=== PATIENT | male | born 1955 | race Caucasian/White ===

== ENCOUNTER 2019-06-08 14:44 | Emergency (ER) | payer MEDICARE, SELFPAY ==
[2019-06-08 14:53] VITALS: BP 174/93; PULSE 81; RESP 18; TEMP 36.5; O2SAT 96; BMI 32.3
--- NOTE | 2019-06-08 15:46 | ED.BACK ---
HPI - Back Pain/Injury <ROSALIA Faria - Last Filed: 06/08/19 17:46> General Chief Complaint: Back Pain/Injury Stated Complaint: lower back pain Time Seen by Provider: 06/08/19 14:47 Source: patient Limitations: no limitations History of Present Illness HPI Narrative: 63yo male with a history of multiple back surgeries including T11-L3 fusion, [place]ro[place], and a L4-L5 fusion. Patient states yesterday he was changing a tire on his vehicle, today he was shoveling a lot of snow and noticed an increase in low back pain, stiffness, and back spasms close to L3 and L4. He states the pain is a dull aching and burning pain that radiates down both legs. Pain is worse with lying, sitting, and moving around. He has been using ice, and heat, and ibuprofen without relief. Patient denies any loss of bowel or bladder control, trauma to the area, limb weakness, nausea, vomiting, diarrhea, fevers, recent spinal injections, or other concerns. Patient states that he has an appointment with his orthopedic in the next few days for possible surgery due to significant arthritis found on CT scans. Related Data Previous Rx's Medication Instructions Recorded cyclobenzaprine 10 mg PO BID PRN #30 tab 06/08/19 hydrocodone-acetaminophen [Quincy] 1 tab PO BID PRN #7 tab 06/08/19 prednisone 20 mg PO DAILY 5 Days #5 tab 06/08/19 Allergies Allergy/AdvReac Type Severity Reaction Status Date / Time morphine [MORPHINE] Allergy Unknown Verified 06/08/19 14:53 Review of Systems <ROSALIA Faria Last Filed: 06/08/19 17:46> Review of Systems Narrative: REVIEW OF SYSTEMS: GENERAL: Denies fever or chills. HENT: No head trauma. EYES: No double vision or vision loss. CARDIOVASCULAR: No chest pain or syncope. RESPIRATORY: No shortness of breath or cough. GASTROINTESTINAL: No nausea, vomiting, diarrhea, or constipation. GENITOURINARY: No flank pain or dysuria. denies loss of bowel or bladder control MUSCULOSKELETAL: Complains of low backpain, see HPI. INTEGUMENTARY: No rash, lesions, or pruritus. NEURO: No numbness, tingling. PSYCH: No behavior or mood changes. Patient History <ROSALIA Faria - Last Filed: 06/08/19 17:46> Medical History Fusion of lumbar spine (Acute) Social History Smoking Status: Never smoker Smoking Status: Never smoker Substance Use Type: does not use Exam <ROSALIA Faria - Last Filed: 06/08/19 17:46> Initial Vital Signs Initial Vital Signs: Vital Signs Temperature 97.7 F 06/08/19 14:53 Pulse Rate 81 06/08/19 14:53 Respiratory Rate 18 06/08/19 14:53 Blood Pressure 174/93 H 06/08/19 14:53 Pulse Oximetry 96 06/08/19 14:53 PHYSICAL EXAMINATION: GENERAL: Well groomed, alert, and cooperative. Answers questions promptly and appropriately. Vital signs noted. HENT: Normocephalic, atraumatic. EYES: Symmetrical, sclera white, no periorbital swelling. CARDIOVASCULAR: S1 and S2 sounds normal. Regular rate and rhythm, no murmurs, clicks, or bruits. No pedal edema. RESPIRATORY: Normal respiratory rate, trachea midline, airway patent. No stridor, nasal flaring or accessory muscle use. Lungs are clear in all novak. MUSCULOSKELETAL: Normal gait and coordination. Equal tone and mass bilaterally. Patient seen bracing himself when standing and sitting in due to back pain. Lumbar spine consistent with surgical site. , tenderness along paraspinal vertebral muscles and back spasm felt to lower lumbar muscles. Patient has equal lower and upper extremity strength against resistance. School Psychologist strength equal bilaterally. EXTREMITIES: CMS intact. No pedal edema. SKIN: Warm, dry, soft, appropriate color for ethnicity. No lesions, rashes, or wounds. NEURO: Alert and Oriented X 3. No sensory deficits. PSYCH: Appropriate affect and mood. <Heike Knutson MD - Last Filed: 06/09/19 06:54> Initial Vital Signs Initial Vital Signs: Vital Signs Temperature 97.7 F 06/08/19 14:53 Pulse Rate 81 06/08/19 14:53 Respiratory Rate 18 06/08/19 14:53 Blood Pressure 174/93 H 06/08/19 14:53 Pulse Oximetry 96 06/08/19 14:53 Course <ROSALIA Faria - Last Filed: 06/08/19 17:46> Vital Signs Vital signs: Vital Signs - 8 hr 06/08/19 14:53 Temperature 97.7 F Pulse Rate 81 Respiratory Rate 18 Blood Pressure 174/93 H Pulse Oximetry 96 <Heike Knutson MD - Last Filed: 06/09/19 06:54> Vital Signs Vital signs: Vital Signs - 8 hr 06/08/19 14:53 Temperature 97.7 F Pulse Rate 81 Respiratory Rate 18 Blood Pressure 174/93 H Pulse Oximetry 96 [facility] - Back Pain/Injury <ROSALIA Faria - Last Filed: 06/08/19 17:46> Medical Records Attestation: I reviewed the patient's medical records. Lab Data Attestation: I reviewed the patient's lab results. [facility] Narrative Medical decision making narrative: 63-year-old male with a history of significant back surgeries presents emergency department today for acute exacerbation of back pain from shoveling snow in changing a tire. He appears in pain during exam and has an appointment scheduled with an orthopedic in the next few weeks for discussion of further surgery due to significant arthritis. I suspect this is an exacerbation of arthritic pain and muscle spasm due to report of pain and reports of spasms, as well as mechanism of injury. Less likely fractures due to lack of trauma, less concern for infection due to lack of recent spinal injection, normal vital signs, and lack of other systemic symptoms such as increased fatigue. After much discussion with patient about the risks and benefits of medication, he was prescribed cyclobenzaprine as he is taking this in the past. We discussed a steroid taper for nerve related pain which he elected to try at this time As he states steroids often help him well. Patient was given a very small dose of Vicodin per request due to the acute exacerbation of pain. Patient was given return precautions for new or worsening symptoms. He agreed to plan of plan of care and verbalized. Discharge Plan Departure Patient Disposition: Home Clinical Impression: Acute exacerbation of chronic low back pain Discharge Date/Time: 06/08/19 15:57 Instructions: DI for Back Pain With Sciatica, DI for Back Spasm Activity Restrictions/Additional Instructions: Thank you for entrusting me with your care today. As discussed, I prescribed you a muscle relaxer and a taper of prednisone to help with your back pain and sciatica. you have been prescribed Vicodin. You have been prescribed a narcotic medication, this medication can make you drowsy. Do not drive while using this medication or perform activities that require mental alertness. These medications can also make you constipated, please use [id number] docusate sodium as needed for constipation. Follow up with your orthopedic as planned. Return emergency department for new or worsening symptoms such as chest pain, shortness of breath, high fevers, or other concerns. Prescriptions: New cyclobenzaprine 5 mg tablet 10 mg PO BID PRN (Reason: muscle spasm) Qty: 30 RF: 0 hydrocodone-acetaminophen [Quincy] 5-325 mg tablet 1 tab PO BID PRN (Reason: pain) Qty: 7 RF: 0 prednisone 20 mg tablet 20 mg PO DAILY 5 Days Qty: 5 RF: 0
--- NOTE | 2019-06-08 15:55 | PC.NURSE ---
CSM/ Neuro at baseline for patient. No focal weakness. Has follow up planned on Thursday w/ orthopedic surgery.
== END 2019-06-08 15:57 | disposition home or self-care (01) ==
PROVIDERS: Emergency Provider Nurse Practitioner
DX: M54.5 Low back pain (principal)
CPT/HCPCS: 99281

== ENCOUNTER → 2021-08-16 13:50 | Outpatient (CLI) | payer MEDICARE, SELFPAY ==
[2021-08-16 15:33] LABS: Add Manual Diff / Slide Review NO; Basophils Absolute Auto 0 /uL (0-100); Basophils Percent Auto 0.6 % (0-2); Eosinophils Absolute Auto 200 /uL (0-450); Eosinophils Percent Auto 3.4 % (2-4); Hemoglobin 13.4 g/dL (13.5-17.5); Lymphocytes Absolute Auto 3000 /uL (1100-4500); Mean Corpuscular HGB Conc 34.4 % (30-36); Mean Corpuscular Hemoglobin 30.1 PG (26-34); Mean Corpuscular Volume 87.5 fL (80-100); Monocytes Absolute Auto 500 /uL (0-900); Monocytes Percent Auto 7.9 % (3-14); Neutrophils Absolute Auto 3100 /uL (1500-7000); Neutrophils Percent Auto 45.1 % (50-75); Platelet Count 196 X10^3/uL (150-400); Red Blood Cell Count 4.46 X10^6/uL (4.5-5.9); Red Cell Distribution Width 13.7 % (11.6-14.8); White Blood Cell Count 6.9 X10^3/uL (4.5-11.0)
[2021-08-16 15:39] LABS: Hemoglobin A1C% w Est Avg Glu 7.9 % (4.0-6.0)
[2021-08-16 16:34] LABS: BUN Creatinine Ratio 22.3 (6-22); Blood Urea Nitrogen 25 mg/dL (9-20); Calcium 9.7 mg/dL (8.4-10.2); Carbon Dioxide 25 mmol/L (22-32); Chloride 103 mmol/L (98-107); Estimated Glomerular Filt Rate > 60.0 mL/min (>60); Glucose 125 mg/dL (80-110); HEMOLYSIS 16 (0-50); Potassium 4.4 mmol/L (3.4-5.1); Sodium 138 mmol/L (137-145)
== END ==
PROVIDERS: PCP Internal Medicine; Referring Provider Orthopaedic Surgery; Visit Provider Orthopaedic Surgery
DX: Z01.818 Encounter for other preprocedural examination (principal); R73.9 Hyperglycemia, unspecified; Z01.812 Encounter for preprocedural laboratory examination
CPT/HCPCS: 36415; 80048; 83036; 85025; 93005

== ENCOUNTER → 2021-09-30 18:32 | Outpatient (CLI) | payer MEDICARE, SELFPAY ==
--- NOTE | 2021-09-30 18:34 | DI.RAD.S_ITS ---
PROCEDURE: XR CHEST 2V INDICATIONS: cough TECHNIQUE: 2 views of the chest were acquired. COMPARISON: None. FINDINGS: Surgical changes and devices: Postoperative changes of the lumbar spine Lungs and pleura: Linear opacities in both lower lung novak are consistent with platelike atelectasis. No focal consolidation or mass. No pneumothorax or pleural effusion. Mediastinum: Mediastinal contours are normal. Heart size is normal. Bones and chest wall: No suspicious bony abnormalities. Soft tissues appear unremarkable. IMPRESSION: Bilateral platelike atelectasis. No other acute abnormality. Dictated by: Jt Hidalgo M.D. on 10/01/2021 at 8:13 Approved by: Jt Hidalgo M.D. on 10/01/2021 at 8:20
== END ==
PROVIDERS: PCP Internal Medicine; Referring Provider Nurse Practitioner Family; Visit Provider Nurse Practitioner Family
DX: J98.11 Atelectasis (principal); R05.9 Cough, unspecified
CPT/HCPCS: 71046

== ENCOUNTER 2022-01-29 19:28 | Emergency (ER) | payer MEDICARE, SELFPAY ==
[2022-01-29 19:34] VITALS: BP 221/108; PULSE 89; RESP 18; TEMP 37; O2SAT 96; BMI 34.5
[2022-01-29 19:47] VITALS: BP 177/102; PULSE 97; RESP 16; O2SAT 95
--- NOTE | 2022-01-29 19:47 | ED.BACK ---
HPI - Back Pain/Injury General Chief Complaint: Back Pain/Injury Stated Complaint: back pain Time Seen by Provider: 01/29/22 19:31 Source: patient History of Present Illness HPI Narrative: 66M nonsmoker with history of diabetes, hyperlipidemia, and HTN presents with 10 days of back pain. He does have a longstanding history dating back to the 1980s when he had injuries requiring surgical intervention. He states that he had been carrying a relatively heavy object a few weeks ago and stepped awkwardly off a curb and has been having pain in his upper back ever since. He states it is a burning, stabbing pain in his central back that is made worse when he moves and improves with rest. He denies any upper or lower extremity numbness, tingling or weakness. He denies any loss of control of bowel or bladder. He is had no fever or chills and does not take blood thinners. He has access to hydrocodone, Valium, methocarbamol, and gabapentin at home but he states those were written for his lower back do not help with his upper back. He denies any head or neck pain or injury. He states that he has been seen by [facility] and was told there is nothing to do. He has an appointment with local spine doctors in a few weeks. Related Data Home Medications Medication Instructions Recorded Confirmed atorvastatin PO 09/30/21 09/30/21 dulaglutide [Trulicity] SUBCUT 09/30/21 09/30/21 hydrochlorothiazide PO 09/30/21 09/30/21 insulin glargine [Lantus Solostar SUBCUT 09/30/21 09/30/21 U-100 Insulin] lisinopril PO 09/30/21 09/30/21 metformin 500 mg tablet 500 mg PO DAILY 09/30/21 09/30/21 Previous Rx's Medication Instructions Recorded cyclobenzaprine 5 mg tablet 10 mg PO BID PRN muscle spasm #30 06/08/19 tabs hydrocodone 5 mg-acetaminophen 325 1 tab PO BID PRN pain #7 tabs 06/08/19 mg tablet (Ridott) benzonatate 100 mg capsule 100 mg PO BID PRN cough #20 caps 09/30/21 hydroxyzine pamoate 50 mg capsule 50 mg PO TID PRN nausea and 01/29/22 (Vistaril) vomiting #30 caps Allergies Allergy/AdvReac Type Severity Reaction Status Date / Time morphine [MORPHINE] Allergy Unknown Verified 09/30/21 17:57 Review of Systems Review of Systems Narrative: GENERAL: Denies chills, fatigue, malaise, fever, sweats. HEENT: Denies sinus pain, ear pain, sore throat, difficulty swallowing, dizziness. RESPIRATORY: Denies dyspnea, cough, wheezing, hemoptysis, sputum. CARDIOVASCULAR: Denies chest pain, palpitations, orthopnea, edema, GASTROINTESTINAL: Denies nausea, vomiting, abdominal pain, diarrhea, constipation, melena. : Denies dysuria, frequency, incontinence, hematuria, urinary retention. MUSCULOSKELETAL: See HPI SKIN: Denies rash, skin lesions, or other NEUROLOGIC: Denies weakness, headache, numbness, change in speech, confusion, seizures, incoordination. PSYCHIATRIC: No concerning psychosocial issues. 12 point review of systems is negative except for those stated above Patient History Medical History Fusion of lumbar spine Social History Smoking Status: Never smoker Smoking Status: Never smoker Substance Use Type: does not use Exam Narrative Exam Narrative: GENERAL: [66] year old patient appears stated age. Well-developed patient, in mild distress. HEAD: Atraumatic. Normocephalic. EYES: Pupils equal round and reactive. Extraocular motions intact. No scleral icterus. No injection or drainage. ENT: Nose without bleeding, purulent drainage. Throat without erythema, tonsillar hypertrophy or exudate. Airway patent. NECK: Trachea midline. Non tender CARDIOVASCULAR: Regular rate and rhythm without murmurs, gallops, or rubs. RESPIRATORY: Clear to auscultation. Breath sounds equal bilaterally. No wheezes, rales, or rhonchi. GASTROINTESTINAL: Abdomen soft, non-tender, nondistended. EXTREMITIES: No edema or joint tenderness. BACK: Mild mid to lower thoracic pain without step-offs or crepitance, no swelling, induration or erythema noted.. NEURO: AOx3. SKIN: No rash or erythema of visible areas Initial Vital Signs Initial Vital Signs: Vital Signs Temperature 98.6 F 01/29/22 19:34 Pulse Rate 89 01/29/22 19:34 Respiratory Rate 18 01/29/22 19:34 Blood Pressure 221/108 H 01/29/22 19:34 Pulse Oximetry 96 01/29/22 19:34 Oxygen Delivery Method 01/29/22 19:34 Course Orders Ordered: ED Orders 01/29/22 20:31 CT lumbar spine wo con Stat CT thoracic spine wo con Stat Discontinued Medications Hydromorphone HCl (Hydromorphone 1 Mg Inj) 1 mg IM NOW ONE Stop: 01/29/22 20:32 Last Admin: 01/29/22 20:35 Dose: 1 mg Documented By: SANTIAGO Hydroxyzine HCl (Hydroxyzine 50 Mg/Ml Inj) 50 mg IM NOW ONE Stop: 01/29/22 22:19 Last Admin: 01/29/22 22:34 Dose: 50 mg Documented By: SANTIAGO Vital Signs Vital signs: Vital Signs - 8 hr 01/29/22 19:34 01/29/22 19:47 01/29/22 22:39 Temperature 98.6 F Pulse Rate 89 97 H 79 Respiratory Rate 18 16 18 Blood Pressure 221/108 H 177/102 H 148/88 H Pulse Oximetry 96 95 96 Oxygen Delivery Method Room Air Room Air Room Air MDM - Back Pain/Injury MDM Narrative Medical decision making narrative: Patient has a very reassuring history and physical exam. He is had worsening upper back pain for many weeks and has no red flag symptoms of neurosurgical emergency. He has access to multiple pain medications at home that have provided little relief. He was given Dilaudid here which provides little relief. There are no findings such as numbness, tingling, weakness or loss of control of bowel or bladder. Return precautions discussed and questions answered to his apparent satisfaction Discharge Plan Departure Patient Disposition: Home Clinical Impression: Acute back pain Instructions: DI for Thoracic Back Pain Activity Restrictions/Additional Instructions: *You have been diagnosed with [acute on chronic thoracic back pain. As we discussed there are no significant findings on imaging that was acquired today.] *What to do: *Please continue to take your regular medications as directed. [ x] New medication prescriptions sent to your pharmacy: [ [facility]] [ ] New medication written as a paper prescription [ ] No new medications given *Please follow up with your primary care provider in 2-3 days, call for an appointment. Let them know you were seen in the Emergency Department and that we ask that you be seen in follow up. We will electronically transmit a record of today's note if your PCP is in our system *If you do not have a primary care provider please contact the [facility] Resource line at [phone]. They will ask some questions about your medical history and help get you set up with a doctor in the community. *Return to Emergency Department if you should have any new, worsening or concerning symptoms, such as [fever greater than 101 F, shaking chills, worsening pain, persistent vomiting or other bothersome symptoms] Prescriptions: New hydroxyzine pamoate [Vistaril] 50 mg capsule 50 mg PO TID PRN (Reason: nausea and vomiting) Qty: 30 0RF No Action lisinopril PO metformin 500 mg tablet 500 mg PO DAILY atorvastatin PO hydrochlorothiazide PO dulaglutide [Trulicity] SUBCUT insulin glargine [Lantus Solostar U-100 Insulin] SUBCUT benzonatate 100 mg capsule 100 mg PO BID PRN (Reason: cough) Qty: 20 0RF cyclobenzaprine 5 mg tablet 10 mg PO BID PRN (Reason: muscle spasm) Qty: 30 0RF hydrocodone-acetaminophen [Ridott] 5-325 mg tablet 1 tab PO BID PRN (Reason: pain) Qty: 7 0RF Referrals: Shaila Montes MD [Primary Care Provider] - Visit Report Forms: Patient Portal/API
--- NOTE | 2022-01-29 20:31 | DI.CT.S_ITS ---
PROCEDURE: CT LUMBAR SPINE WO CON INDICATIONS: severe pain TECHNIQUE: Noncontrast 3 mm thick sections acquired from the T12 level to the sacrum. Sagittal and coronal reformats were constructed. For radiation dose reduction, the following was used: automated exposure control. COMPARISON: [facility] [place], CR, XR LUMBAR SPINE WITH OLBIQUES PLUS FLEXION EXTENSION, 12/26/2019, 16:10. [facility], CT, CT THORACIC SPINE WO CON, 01/29/2022, 20:45. FINDINGS: Image quality: There is metallic streak artifact from patient's surgical hardware. Bones: Transitional anatomy is demonstrated with sacralization of L5. There is a mildly displaced left pars defect at L4 which appears nonacute. Mild anterolisthesis demonstrated at L4-5 measuring approximately 0.3 cm. Minimal retrolisthesis also demonstrated at L1-L2, L2-L3, and L3-L4. There are bilateral posterior fixation rods at L2 which extend superiorly into the thoracic spine. No acute vertebral body compression fractures. There is multilevel degenerative disc disease including moderate degeneration at L3-L4 with endplate sclerosis and osteophytosis. Multilevel vacuum disc phenomenon also demonstrated at L1-L2, L2-L3, L3-L4, and L4-5. There is moderate facet joint arthropathy within the lower lumbar spine. No suspicious lytic or blastic bony lesions. Soft tissues: No retroperitoneal masses or hematomas. Visualized aorta is normal in caliber. IMPRESSION: 1. No acute fracture or traumatic subluxation. 2. Mildly displaced left pars defect at L4 which appears nonacute. There is associated mild anterolisthesis at L4-5. 3. Multilevel degenerative disc disease most prominent at L3-L4. 4. Moderate facet arthropathy in the lower lumbar spine. Dictated by: Bird Esquivel M.D. on 01/29/2022 at 21:31 Approved by: Bird Esquivel M.D. on 01/29/2022 at 21:37
--- NOTE | 2022-01-29 20:31 | DI.CT.S_ITS ---
PROCEDURE: CT THORACIC SPINE WO CON INDICATIONS: severe pain, negative plain films TECHNIQUE: Noncontrast 3 mm thick sections acquired through the region of interest in the thoracic spine. Sagittal and coronal reformats were then constructed. For radiation dose reduction, the following was used: automated exposure control. COMPARISON: None. FINDINGS: Image quality: Evaluation is limited by motion artifact as well as metallic streak artifact from patient's partially visualized surgical hardware in the lower thoracic spine. Bones: There is a minimal rightward curvature of the thoracic spine. No acute vertebral body compression fractures. No evidence of traumatic subluxation. There is multilevel degenerative disc disease throughout the thoracic spine including moderate degeneration at T6-T7 with endplate sclerosis and osteophytosis. There are posterior fixation rods partially visualized extending from T10 inferiorly into the lumbar spine. No suspicious sclerotic or lytic bony lesions. Central spinal canal is of normal overall caliber. Soft tissues: No paravertebral masses or hematomas. Visualized posteromedial lungs appear clear. IMPRESSION: 1. No fracture or subluxation. 2. Multilevel degenerative changes throughout the thoracic spine including moderate degeneration at T6-T7. Dictated by: Bird Esquivel M.D. on 01/29/2022 at 21:24 Approved by: Bird Esquivel M.D. on 01/29/2022 at 21:31
[2022-01-29] MEDS: HYDROMORPHONE 1 MG INJ IM (20:35)
[2022-01-29] MEDS: hydrOXYzine 50 MG/ML INJ IM (22:34)
[2022-01-29 22:39] VITALS: BP 148/88; PULSE 79; RESP 18; O2SAT 96
== END 2022-01-29 22:40 | disposition home or self-care (01) ==
PROVIDERS: Emergency Provider Emergency Medicine; PCP Internal Medicine
DX: M54.6 Pain in thoracic spine (principal)
CPT/HCPCS: 72128; 72131; 96372; 99283; J1170; J3410

== ENCOUNTER 2023-09-30 05:10 | Emergency (ER) | payer MEDICARE, SELFPAY ==
[2023-09-30 05:20] VITALS: BP 145/99; PULSE 98; RESP 16; TEMP 35.8; O2SAT 95; BMI 33.1
--- NOTE | 2023-09-30 05:28 | DI.RAD.S_ITS ---
PROCEDURE: XR THORACIC SPINE 3V INDICATIONS: BACK PAIN, NO TRAUMA TECHNIQUE: 4 views of the thoracic spine were acquired. COMPARISON: [facility] [place], CR, XR LUMBAR SPINE WITH OLBIQUES PLUS FLEXION EXTENSION, 12/26/2019, 16:10. FINDINGS: Bones: No acute fractures or dislocations. No suspicious bony lesions. 12 pairs of ribs are noted, and appear intact where visualized. Stable appearance of long segment posterior spinal fusion of T10 through L3. No hardware complication. No acute compression fractures. Moderate multilevel thoracic spondylitic changes with prominent anterior flowing endplate osteophytes. Soft tissues: No paravertebral stripe thickening. IMPRESSION: Thoracic spine without acute fracture or malalignment. Moderate multilevel thoracic spondylosis. No significant discrepancy with the cost estimating manager radiology preliminary report. Dictated by: Walt Denson M.D. on 09/30/2023 at 6:54 Approved by: Walt Denson M.D. on 09/30/2023 at 6:57
--- NOTE | 2023-09-30 05:28 | ED_ITS ---
HPI - Back Pain/Injury General Chief Complaint: Back Pain/Injury Stated Complaint: back pain Time Seen by Provider: 09/30/23 05:12 Source: patient History of Present Illness HPI Narrative: 68-year-old male presents for lower thoracic back pain. Patient has chronic back pain and has previously had a fusion in his lower T and upper L-spine. He takes oxycodone 3 times daily. He states that no matter what position he would try or medications that he would take he continued to have pain and decided to present for evaluation. Denies bowel or bladder incontinence, denies saddle anesthesia, denies difficulty ambulating. Related Data Home Medications Medication Instructions Recorded Confirmed atorvastatin PO 09/30/21 09/30/21 dulaglutide [Trulicity] SUBCUT 09/30/21 09/30/21 hydrochlorothiazide PO 09/30/21 09/30/21 insulin glargine [Lantus Solostar SUBCUT 09/30/21 09/30/21 U-100 Insulin] lisinopril PO 09/30/21 09/30/21 metformin 500 mg tablet 500 mg PO DAILY 09/30/21 09/30/21 Previous Rx's Medication Instructions Recorded cyclobenzaprine 5 mg tablet 10 mg (2 x 5 mg) PO BID PRN muscle 06/08/19 spasm #30 tabs hydrocodone 5 mg-acetaminophen 325 1 tab PO BID PRN pain #7 tabs /15/20 mg tablet (Grayson) benzonatate 100 mg capsule 100 mg PO BID PRN cough #20 caps 09/30/21 hydroxyzine pamoate 50 mg capsule 50 mg PO TID PRN nausea and 01/29/22 (Vistaril) vomiting #30 caps cyclobenzaprine 10 mg tablet 10 mg PO TID PRN muscle spasm #30 09/30/23 tabs Allergies Allergy/AdvReac Type Severity Reaction Status Date / Time morphine [MORPHINE] Allergy Unknown Verified 09/30/21 17:57 Patient History Medical History (Updated 09/30/23 @ 06:22 by Daina Forman MD) Fusion of lumbar spine Social History Smoking Status: Never smoker Smoking Status: Never smoker Substance Use Type: does not use Exam Initial Vital Signs Initial Vital Signs: Vital Signs Temperature 96.5 F L 09/30/23 05:20 Pulse Rate 98 H 09/30/23 05:20 Respiratory Rate 16 09/30/23 05:20 Blood Pressure 145/99 H 09/30/23 05:20 Pulse Oximetry 95 09/30/23 05:20 Oxygen Delivery Method Room Air 09/30/23 05:20 Course Orders Ordered: ED Orders 09/30/23 05:28 XR thoracic spine 3V Stat Discontinued Medications Dexamethasone (Dexamethasone 10 Mg/Ml Vial) 10 mg IV NOW ONE Stop: 09/30/23 05:19 Last Admin: 09/30/23 05:33 Dose: 10 mg Documented By: MARLEN Diazepam (Diazepam 10 Mg/2 Ml Syringe) 2 mg IV NOW ONE Stop: 09/30/23 05:19 Last Admin: 09/30/23 05:36 Dose: 2 mg Documented By: MARLEN Acetaminophen (Ofirmev) 1,000 mg in 100 mls @ 400 mls/hr IV NOW ONE Stop: 09/30/23 05:32 Last Infusion: 09/30/23 06:07 Dose: Infused Documented By: Admin: 09/30/23 05:40 Dose: 400 mls/hr Documented By: MARLEN Ketorolac Tromethamine (Ketorolac 30 Mg/Ml Vial) 15 mg IV NOW ONE Stop: 09/30/23 05:19 Last Admin: 09/30/23 05:32 Dose: 15 mg Documented By: MARLEN Vital Signs Vital signs: Vital Signs - 8 hr 09/30/23 05:20 Temperature 96.5 F L Pulse Rate 98 H Respiratory Rate 16 Blood Pressure 145/99 H Pulse Oximetry 95 Oxygen Delivery Method Room Air MDM - Back Pain/Injury MDM Narrative Medical decision making narrative: Acute on chronic thoracic back pain. No trauma. Neurologically intact. X-rays show chronic spondylitic changes of the spine without acute findings. Patient's pain improved with Tylenol, Toradol, Decadron, IV Valium. Patient informed of x-ray results, we will discharge with muscle relaxers. Patient counseled to be careful when combining Flexeril and his oxycodone as this may cause drowsiness. PCP follow up advised Discharge Plan Departure Patient Disposition: Home Clinical Impression: Thoracic back pain Instructions: DI for Back Spasm Activity Restrictions/Additional Instructions: Continue to take your normal medications as prescribed. You did receive a single dose of a steroid here, which may briefly elevate your blood sugars. Be careful when combining your oxycodone and the Flexeril, as this may cause drowsiness Prescriptions: New cyclobenzaprine 10 mg tablet 10 mg PO TID PRN (Reason: muscle spasm) Qty: 30 0RF No Action lisinopril PO metformin 500 mg tablet 500 mg PO DAILY atorvastatin PO hydrochlorothiazide PO dulaglutide [Trulicity] SUBCUT insulin glargine [Lantus Solostar U-100 Insulin] SUBCUT benzonatate 100 mg capsule 100 mg PO BID PRN (Reason: cough) Qty: 20 0RF cyclobenzaprine 5 mg tablet 10 mg PO BID PRN (Reason: muscle spasm) Qty: 30 0RF hydrocodone-acetaminophen [Grayson] 5-325 mg tablet 1 tab PO BID PRN (Reason: pain) Qty: 7 0RF hydroxyzine pamoate [Vistaril] 50 mg capsule 50 mg PO TID PRN (Reason: nausea and vomiting) Qty: 30 0RF Referrals: Shaila Montes MD [Primary Care Provider] - Stand Alone Forms: Patient Portal/API
[2023-09-30] MEDS: KETOROLAC 30 MG/ML VIAL 15 MG IV (05:32)
[2023-09-30] MEDS: DEXAMETHASONE 10 MG/ML VIAL IV (05:33)
[2023-09-30] MEDS: diazePAM 10 MG/2 ML SYRINGE 2 MG IV (05:36)
[2023-09-30] MEDS: ACETAMINOPHEN IV 1,000 MG/100 ML VIAL 400 MG IV (05:40)
[2023-09-30 06:27] VITALS: BP 137/77; PULSE 94; RESP 16; O2SAT 99
[2023-09-30 06:30] VITALS: TEMP 36.3
== END 2023-09-30 06:31 | disposition home or self-care (01) ==
PROVIDERS: Emergency Provider Emergency Medicine; PCP Internal Medicine
DX: M54.6 Pain in thoracic spine (principal)
CPT/HCPCS: 72072; 99283; J0136; J1100; J1885; J3360

== ENCOUNTER 2023-09-30 06:47 | Emergency (ER) | payer MEDICARE, SELFPAY ==
--- NOTE | 2023-09-30 06:52 | DI.CT.S_ITS ---
PROCEDURE: CT HEAD/BRAIN WO CON INDICATIONS: GLF/FOREHEAD INJURY TECHNIQUE: Noncontrast 4.5 mm thick angled axial sections acquired from the foramen magnum to the vertex, with coronal and sagittal reformats. For radiation dose reduction, the following was used: automated exposure control, adjustment of mA and/or kV according to patient size. COMPARISON: None. FINDINGS: Image quality: Diagnostic. CSF spaces: Basal cisterns are patent. No extra-axial fluid collections. The ventricles are symmetric in size and shape. Brain: No intracranial bleeds or masses. There is cerebral volume loss for age, with resultant ventricular and sulcal prominence. There are periventricular and deep white matter chronic small vessel ischemic changes. There is intracranial internal carotid artery atherosclerosis. Skull and face: Calvarium and visualized facial bones appear intact, without suspicious lesions. Left frontal scalp contusion. Sinuses: Visualized sinuses and mastoids are clear. IMPRESSION: 1. No acute intracranial abnormalities. 2. Cerebral volume loss and chronic microvascular ischemic changes. Dictated by: Chandan Gupta M.D. on 09/30/2023 at 7:50 Approved by: Chandan Gupta M.D. on 09/30/2023 at 7:51
--- NOTE | 2023-09-30 06:52 | DI.CT.S_ITS ---
PROCEDURE: CT CERVICAL SPINE WO CON INDICATIONS: GLF/FOREHEAD INJURY TECHNIQUE: Noncontrast 3 mm thick sections acquired from the skull base to the T4 level. Sagittal and coronal reformats were then constructed. For radiation dose reduction, the following was used: automated exposure control, adjustment of mA and/or kV according to patient size. COMPARISON: [facility], CT, C-SPINE WITHOUT CONTRAST, 03/11/2015, 18:24. FINDINGS: Image quality: Excellent. Bones: No fractures or dislocations. Moderate spondylitic changes. Visualized superior ribs are intact. Soft tissues: Prevertebral soft tissues are normal in thickness. No paravertebral hematomas. No apical pneumothoraces. Right apical scars and atelectasis. IMPRESSION: No displaced fracture or traumatic subluxation. Dictated by: Chandan Gupta M.D. on 09/30/2023 at 7:52 Approved by: Chandan Gupta M.D. on 09/30/2023 at 7:54
[2023-09-30 06:53] VITALS: BP 144/80; PULSE 103; RESP 18; TEMP 37.1; O2SAT 94; BMI 34.0
[2023-09-30] MEDS: TET,DIPH,PERTUSS(ACELL),VAC/PF 0.5 ML SYRINGE IM (07:00)
--- NOTE | 2023-09-30 07:07 | ED_ITS ---
HPI - Fall General Chief Complaint: Fall Stated Complaint: fall scrapes on knees Time Seen by Provider: 09/30/23 06:51 Source: patient Mode of arrival: Wheelchair Limitations: no limitations History of Present Illness HPI Narrative: 68-year-old male history of chronic back pain, dyslipidemia, diabetes who represents with complaint of fall. Patient was seen earlier this morning for lower back pain described as chronic fusion in the lower anterior upper spine. Patient had then ambulated out to his vehicle tripped and fell hitting his head. Patient states he just caught 1 ft on the other. He states no loss of consciousness but did clearly hit his head and landed on his knees. He states he did try to get back up on his own but has pretty bad knees and was very difficult so he waited till someone came and assisted him up. Patient states no daily anticoagulants including aspirin, Plavix or Coumadin. Patient states no loss of consciousness denies any neck pain. He states his back pain from earlier still continues to be improved. He has abrasions on both knees but states he is able to straighten and flex them normally without any issue. Tetanus was updated here in the department. Reported allergy to morphine. Patient has had surgeries on his back including Almonte rods and states he is scheduled to have his knees replaced in the future. No tobacco, alcohol or recreational drugs. Related Data Home Medications Medication Instructions Recorded Confirmed atorvastatin PO 09/30/21 09/30/21 dulaglutide [Trulicity] SUBCUT 09/30/21 09/30/21 hydrochlorothiazide PO 09/30/21 09/30/21 insulin glargine [Lantus Solostar SUBCUT 09/30/21 09/30/21 U-100 Insulin] lisinopril PO 09/30/21 09/30/21 metformin 500 mg tablet 500 mg PO DAILY 09/30/21 09/30/21 Previous Rx's Medication Instructions Recorded cyclobenzaprine 5 mg tablet 10 mg (2 x 5 mg) PO BID PRN muscle 06/08/19 spasm #30 tabs hydrocodone 5 mg-acetaminophen 325 1 tab PO BID PRN pain #7 tabs 06/08/19 mg tablet (Pawnee) benzonatate 100 mg capsule 100 mg PO BID PRN cough #20 caps 09/30/21 hydroxyzine pamoate 50 mg capsule 50 mg PO TID PRN nausea and 01/29/22 (Vistaril) vomiting #30 caps cyclobenzaprine 10 mg tablet 10 mg PO TID PRN muscle spasm #30 09/30/23 tabs Allergies Allergy/AdvReac Type Severity Reaction Status Date / Time morphine [MORPHINE] Allergy Unknown Verified 09/30/21 17:57 Review of Systems Review of Systems ROS Unobtainable: All systems reviewed & are unremarkable except as noted in HPI and below Patient History Medical History (Updated 09/30/23 @ 08:12 by Daina Sharpe DO) Fusion of lumbar spine Social History Smoking Status: Never smoker Smoking Status: Never smoker Substance Use Type: does not use Exam Narrative Exam Narrative: GEN: C Patient appears in mild distress. HEAD: No patient has a large abrasion and hematoma on his right anterior forehead no raccoon/Reyes sign. NECK: Nontender, painless range of motion, trachea midline Negative Nexus criteria, no midline line tenderness, distracting injury, altered mental status, neuro deficit, recent EtOH. EYES: PERRLA, EOMI ENT: External inspection normal, trachea is midline, nares are clear, no septal hematoma, no dental or oral injury, airway is normal and with normal occlusion, No bony tenderness RESP: Chest is nontender and has symmetric movement, no ecchymosis, breath sounds are normal no crackles, wheezes or rales CVS: Heart sounds are normal, no murmur noted, No JVD. ABG/GI: Nontender, soft, normal bowel sounds, no distention, no organomegaly, pelvic rock is negative NEURO: Oriented AOx3, neuro is grossly intact, sensation and motor is normal all 4 extremities moving, cranial nerves II through XII are intact, GCS is 15 PSYCH: Normal mood and affect SKIN: Warm and dry, no crepitus and without decubitus BACK: No CVA tenderness, no vertebral tenderness, no step-off's, no crepitus EXT: Patient has abrasions and ecchymosis bilateral knees, hips are nontender, no pedal edema, normal color and temperature, normal range of motion of extremities with normal tendon exam, 2+ pulses in all four extremities Initial Vital Signs Initial Vital Signs: Vital Signs Temperature 98.8 F 05/08/24 06:53 Pulse Rate 103 H 09/30/23 06:53 Respiratory Rate 18 09/30/23 06:53 Blood Pressure 144/80 H 09/30/23 06:53 Pulse Oximetry 94 09/30/23 06:53 Oxygen Delivery Method Room Air 09/30/23 06:[address] Head Rule Age greater or equal to 65 years: Yes Course Orders Ordered: Discontinued Medications Diphtheria/Tetanus/Acell Pertussis (Tet,Diph,Pertuss(Acell),Vac/Pf 0.5 Ml Syringe) 0.5 ml IM .ONCE ONE Stop: 09/30/23 06:53 Last Admin: 09/30/23 07:00 Dose: 0.5 ml Documented By: TALITA Vital Signs Vital signs: Vital Signs - 8 hr 09/30/23 06:53 Temperature 98.8 F Pulse Rate 103 H Respiratory Rate 18 Blood Pressure 144/80 H Pulse Oximetry 94 Oxygen Delivery Method Room Air MDM - Fall Imaging Data CT scan - head: Radiologist's Impression: Close Head CT (Signed) Chandan Gupta - 09/30/[address] (Signed) Chandan Gupta - 09/30/23 Thoracic Spine X-Ray (Signed) Walt Denson - 09/30/[address] (Signed) Bird Esquivel - 01/29/[address] (Signed) Bird Esquivel - 01/29/22 Chest X-Ray (Signed) Jt Hidalgo - 09/30/21 [place] [address] CT Scan Report Signed Patient: Sung Fish MR#: [id number] : 1955 Acct:[id number] Age/Sex: 68 / M Date of Service: 09/30/23 Loc: ED Accession Number: [id number] Procedure: CT head/brain wo con Ordering Provider: Daina Forman MD PROCEDURE: CT HEAD/BRAIN WO CON INDICATIONS: GLF/FOREHEAD INJURY TECHNIQUE: Noncontrast 4.5 mm thick angled axial sections acquired from the foramen magnum to the vertex, with coronal and sagittal reformats. For radiation dose reduction, the following was used: automated exposure control, adjustment of mA and/or kV according to patient size. COMPARISON: None. FINDINGS: Image quality: Diagnostic. CSF spaces: Basal cisterns are patent. No extra-axial fluid collections. The ventricles are symmetric in size and shape. Brain: No intracranial bleeds or masses. There is cerebral volume loss for age, with resultant ventricular and sulcal prominence. There are periventricular and deep white matter chronic small vessel ischemic changes. There is intracranial internal carotid artery atherosclerosis. Skull and face: Calvarium and visualized facial bones appear intact, without suspicious lesions. Left frontal scalp contusion. Sinuses: Visualized sinuses and mastoids are clear. IMPRESSION: 1. No acute intracranial abnormalities. 2. Cerebral volume loss and chronic microvascular ischemic changes. Dictated by: Chandan Gupta M.D. on 09/30/2023 at 7:50 Approved by: Chandan Gupta M.D. on 09/30/2023 at 7:51 CT - cervical spine: Radiologist's Impression: [place] [address] CT Scan Report Signed Patient: Sung Fish MR#: [id number] : 1955 Acct:[id number] Age/Sex: 68 / M Date of Service: 09/30/23 Loc: ED Accession Number: [id number] Procedure: CT cervical spine wo con Ordering Provider: Daina Forman MD PROCEDURE: CT CERVICAL SPINE WO CON INDICATIONS: GLF/FOREHEAD INJURY TECHNIQUE: Noncontrast 3 mm thick sections acquired from the skull base to the T4 level. Sagittal and coronal reformats were then constructed. For radiation dose reduction, the following was used: automated exposure control, adjustment of mA and/or kV according to patient size. COMPARISON: [facility], CT, C-SPINE WITHOUT CONTRAST, 03/11/2015, 18:24. FINDINGS: Image quality: Excellent. Bones: No fractures or dislocations. Moderate spondylitic changes. Visualized superior ribs are intact. Soft tissues: Prevertebral soft tissues are normal in thickness. No paravertebral hematomas. No apical pneumothoraces. Right apical scars and atelectasis. IMPRESSION: No displaced fracture or traumatic subluxation. Dictated by: Chandan Gupta M.D. on 09/30/2023 at 7:52 Approved by: Chandan Gupta M.D. on 09/30/2023 at 7:54 MDM Narrative Medical decision making narrative: 68-year-old male with a clinical were out of the fall who is just here for his back. Patient states back continues to feel improved he does have Almonte rods place. He is large abrasion hematoma on his forehead as well as abrasions and ecchymosis on his knees. Full range of motion of knee states he does not feel like anything is broken. He has not on any daily anticoagulants but based on age and significance of bruising head CT and C-spine were obtained. Tetanus was updated as well. Head CT is negative for fracture or bleed. Patient has left frontal scalp contusion. Cerebral volume loss chronic microvascular ischemic changes with intracranial intraconal carotid artery atherosclerosis. C-spine CT is negative for acute changes Discharge Plan Departure Patient Disposition: Home Clinical Impression: Traumatic hematoma of head, Abrasion of knee, bilateral, Fall Activity Restrictions/Additional Instructions: Follow up as needed. I hope you continue to feel improved. Your imaging showed no changes to the bones or bleed in the brain, does show a little bit of atherosclerosis in your carotid arteries on the inside your brain. Share this information with your physician. Wound Care: Keep wound(s) clean and dry. Wash daily with soap and water only. You may use topical triple antibiotic ointment to the affected areas twice daily. If wound condition worsens (increased/expanding redness, developing fluid blisters, or worsening pain), either contact your doctor for an urgent re- assessment , or return to the Emergency Department. Return to the Emergency Department for any new or worsening symptoms. Return if fever greater than 100.4 Fahrenheit, increased swelling, increasing pain or worsening symptoms such as increased discharge or spreading redness. Severe headaches, new numbness tingling or weakness, difficulty with movement, persistent vomiting, lightheadedness or passing out or other new or concerning changes. Prescriptions: No Action lisinopril PO metformin 500 mg tablet 500 mg PO DAILY atorvastatin PO hydrochlorothiazide PO dulaglutide [Trulicity] SUBCUT insulin glargine [Lantus Solostar U-100 Insulin] SUBCUT benzonatate 100 mg capsule 100 mg PO BID PRN (Reason: cough) Qty: 20 0RF cyclobenzaprine 10 mg tablet 10 mg PO TID PRN (Reason: muscle spasm) Qty: 30 0RF cyclobenzaprine 5 mg tablet 10 mg PO BID PRN (Reason: muscle spasm) Qty: 30 0RF hydrocodone-acetaminophen [Pawnee] 5-325 mg tablet 1 tab PO BID PRN (Reason: pain) Qty: 7 0RF hydroxyzine pamoate [Vistaril] 50 mg capsule 50 mg PO TID PRN (Reason: nausea and vomiting) Qty: 30 0RF Referrals: Shaila Montes MD [Primary Care Provider] - Stand Alone Forms: Patient Portal/API
[2023-09-30 08:12] VITALS: BP 144/80; PULSE 88; RESP 19; O2SAT 99
[2023-09-30 08:23] VITALS: BP 137/84; PULSE 89; RESP 17; TEMP 37.4; O2SAT 95
== END 2023-09-30 08:24 | disposition home or self-care (01) ==
PROVIDERS: Emergency Provider Emergency Medicine; PCP Internal Medicine
DX: S00.93XA Contusion of unspecified part of head, initial encounter (principal); S80.212A Abrasion, left knee, initial encounter; S80.211A Abrasion, right knee, initial encounter; W01.0XXA Fall on same level from slipping, tripping and stumbling without subsequent striking against object, initial encounter; Z79.899 Other long term (current) drug therapy; Z23 Encounter for immunization
CPT/HCPCS: 70450; 72072; 72125; 90471; 99283; 99284; 90715; J0136; J1100; J1885; J3360

== ENCOUNTER 2023-10-01 22:14 | Inpatient (IN) | payer MEDICARE, SELFPAY ==
[2023-10-01 22:17] VITALS: BP 137/81; PULSE 113; RESP 23; TEMP 38.7; O2SAT 88; BMI 33.9
--- NOTE | 2023-10-01 22:29 | PC.NURSE ---
Pt has bilateral knee abrasions, in various staging of healing. states that falls only started yesterday after being seen for back pain (chronic pain/pain management). PCP manages pain medications, next appointment is December 08 2023.
--- NOTE | 2023-10-01 22:46 | DI.RAD.S_ITS ---
PROCEDURE: XR CHEST 1V INDICATIONS: suspected sepsis TECHNIQUE: One view of the chest was acquired. COMPARISON: [facility], , XR CHEST 2V, 09/30/2021, 18:25. FINDINGS: Surgical changes and devices: Partially visualized spinal hardware Lungs and pleura: Very low lung volumes. No dense consolidation or pleural effusion Possible scarring/senescent lung markings in the left infrahilar region again seen Mediastinum: Patient rotation limits evaluation. Heart size is probably normal. Bones and chest wall: Degenerative changes IMPRESSION: No acute abnormality on this limited single view rotated radiograph with low lung volumes. Dictated by: Vidal Mejía M.D. on 10/01/2023 at 23:44 Approved by: Vidal Mejía M.D. on 10/01/2023 at 23:45
--- NOTE | 2023-10-01 22:53 | DI.CT.S_ITS ---
PROCEDURE: CT HEAD/BRAIN WO CON INDICATIONS: fever, fall TECHNIQUE: Noncontrast 4.5 mm thick angled axial sections acquired from the foramen magnum to the vertex, with coronal and sagittal reformats. For radiation dose reduction, the following was used: automated exposure control, adjustment of mA and/or kV according to patient size. COMPARISON: [facility], CT, CT HEAD/BRAIN WO CON, 09/30/2023, 7:27. FINDINGS: Image quality: Diagnostic CSF spaces: Basal cisterns are patent. Lateral ventricles are symmetric. Volume: Vascular calcifications. Periventricular white matter disease is commonly seen with chronic microangiopathy. Volume loss is present. These findings are mild Brain: No intracranial hemorrhage. Malhotra-white differentiation is grossly maintained. Craniofacial structures: Right supraorbital contusion. mild paranasal sinus mucosal thickening. Partially visualized craniofacial structures otherwise unremarkable. IMPRESSION: No acute intracranial pathology. Dictated by: Vidal Mejía M.D. on 10/02/2023 at 0:09 Approved by: Vidal Mejía M.D. on 10/02/2023 at 0:10
--- NOTE | 2023-10-01 22:53 | DI.CT.S_ITS ---
PROCEDURE: CT CERVICAL SPINE WO CON INDICATIONS: fever, fall TECHNIQUE: Noncontrast 3 mm thick sections acquired from the skull base to the T4 level. Sagittal and coronal reformats were then constructed. For radiation dose reduction, the following was used: automated exposure control, adjustment of mA and/or kV according to patient size. COMPARISON: [facility], CT, CT CERVICAL SPINE WO CON, 09/30/2023, 7:27. FINDINGS: Image quality: Diagnostic Bones: No traumatic subluxation. Vertebral body heights are well maintained. Unchanged trace retrolisthesis of C4 on C5. Overall moderate degenerative changes. Soft tissues: Possible upper lobe opacities which may represent scarring, partially seen. No pneumothorax. No pathologic prevertebral soft tissue swelling. There are vascular calcifications. IMPRESSION: No displaced fracture or traumatic subluxation. If there is high concern for further derangement, consider MRI evaluation. Dictated by: Vidal Mejía M.D. on 10/02/2023 at 0:11 Approved by: Vidal Mejía M.D. on 10/02/2023 at 0:13
[2023-10-01 23:01] LABS: INR 1.1 (0.9-1.3); Prothrombin Time 12.8 SECONDS (9.4-12.5)
[2023-10-01 23:03] LABS: PTT Partial Thromboplastin Tim 32 SECONDS (25.1-36.5)
[2023-10-01 23:05] LABS: Add Manual Diff / Slide Review NO; Basophils Absolute Auto 0 /uL (0-100); Basophils Percent Auto 0.3 % (0-2); Eosinophils Absolute Auto 200 /uL (0-450); Eosinophils Percent Auto 1.1 % (2-4); Hematocrit 38.3 % (41-53); Hemoglobin 12.8 g/dL (13.5-17.5); Lymphocytes Absolute Auto 3800 /uL (1100-4500); Lymphocytes Percent Auto 27.5 % (25-40); Mean Corpuscular HGB Conc 33.4 % (30-36); Mean Corpuscular Volume 89.8 fL (80-100); Monocytes Absolute Auto 1400 /uL (0-900); Monocytes Percent Auto 9.7 % (3-14); Neutrophils Absolute Auto 8600 /uL (1500-7000); Neutrophils Percent Auto 61.4 % (50-75); Platelet Count 207 X10^3/uL (150-400); Red Blood Cell Count 4.27 X10^6/uL (4.5-5.9); Red Cell Distribution Width 13.8 % (11.6-14.8)
[2023-10-01 23:09] LABS: Alanine Aminotransferase 31 IU/L (<50); Albumin 4.6 g/dL (3.5-5.0); Albumin Globulin Ratio 1.4 (1.0-2.8); Alkaline Phosphatase 56 U/L (38-126); Aspartate Aminotransferase 42 IU/L (17-59); BUN Creatinine Ratio 23.7 (6-22); Bilirubin Total 2.2 mg/dL (0.2-1.3); Blood Urea Nitrogen 23 mg/dL (9-20); Calcium 9.1 mg/dL (8.4-10.2); Carbon Dioxide 23 mmol/L (22-32); Chloride 103 mmol/L (98-107); Estimated Glomerular Filt Rate > 60 mL/min (>60); Globulin 3.2 g/dL (1.7-4.1); Glucose 153 mg/dL (80-110); HEMOLYSIS < 15 (0-50); Lipase 45 U/L (23-300); Potassium 3.6 mmol/L (3.4-5.1); Sodium 138 mmol/L (137-145); Total Protein 7.8 g/dL (6.3-8.2)
[2023-10-01] MEDS: SODIUM CHLORIDE 0.9% 1,000 ML 1000 ML IV (23:20)
[2023-10-01 23:25] LABS: Procalcitonin 0.23 ng/mL (<0.5)
[2023-10-01 23:30] VITALS: BP 150/73; PULSE 103; RESP 26; O2SAT 93
[2023-10-01 23:30] LABS: Ammonia (NH3) < 9 umol/L (9-30)
[2023-10-01 23:35] LABS: Lactate (Lactic Acid) 5.7 mmol/L (0.7-2.1)
[2023-10-02] VITALS (19 sets, daily range): BP systolic 118–179; BP diastolic 53–95; PULSE 90–109; RESP 18–31; TEMP 37.1–38; O2SAT 90–99; BMI 34.0
--- NOTE | 2023-10-02 00:15 | PC.NURSE ---
Gave 1000 ml 0.9% NS from EMS.
[2023-10-02 00:28] LABS: Lactate (Lactic Acid) 1.7 mmol/L (0.7-2.1)
[2023-10-02 00:30] LABS: Reflexed Lactate in 2 Hours Y
--- NOTE | 2023-10-02 01:52 | DI.CT.S_ITS ---
PROCEDURE: CT LUMBAR SPINE WO CON INDICATIONS: back pain, falls TECHNIQUE: Noncontrast 3 mm thick sections acquired from the T12 level to the sacrum. Sagittal and coronal reformats were constructed. For radiation dose reduction, the following was used: automated exposure control. COMPARISON: [facility] [place], CR, XR LUMBAR SPINE WITH OLBIQUES PLUS FLEXION EXTENSION, 12/26/2019, 16:10. [facility], CT, CT LUMBAR SPINE WO CON, 01/29/2022, 20:45. FINDINGS: Image quality: Excellent. Bones: Transitional anatomy with lumbarization of L5. Nonacute left L4 pars interarticularis defect again noted. There is grade 1 anterolisthesis of L4 on L5. Trace retrolisthesis of L1 on L2 and L2 on L3. No acute vertebral body compression fractures. No suspicious lytic or blastic bony lesions. No pars defects. Surgical changes with posterior fusion at T9-L2. from the in the lower thoracic spine and upper lumbar spine. Multilevel degenerative disc disease, moderate at L3-L4 and L4-L5, mild at L1-L2 and L2-L3. Multilevel bilateral facet arthropathy moderate at T12-L1, L1-L2, L2-L3, L3-L4 and L4-L5, severe at L5-S1. Soft tissues: No retroperitoneal masses or hematomas. Visualized aorta is normal in caliber. Note is made of a parapelvic left renal cyst. IMPRESSION: 1. No acute lumbar spine fracture. 2. Degenerative and postsurgical changes in lumbar spine. 3. Transitional anatomy with lumbarization of L5. Please confirm vertebral levels prior to any interventional procedure or surgery. No significant discrepancy with the third shift lieutenant radiology preliminary report. Dictated by: Chandan Gupta M.D. on 10/02/2023 at 7:57 Approved by: Chandan Gupta M.D. on 10/02/2023 at 8:04
--- NOTE | 2023-10-02 01:52 | DI.CT.S_ITS ---
PROCEDURE: CT THORACIC SPINE WO CON INDICATIONS: back pain, falls TECHNIQUE: Noncontrast 3 mm thick sections acquired through the region of interest in the thoracic spine. Sagittal and coronal reformats were then constructed. For radiation dose reduction, the following was used: automated exposure control. COMPARISON: [facility], CT, CT THORACIC SPINE WO CON, 01/29/2022, 20:45. FINDINGS: Image quality: Excellent. Bones: There is normal overall bony alignment. Stable concave compression deformity of the T11 vertebral body. Moderate, multilevel degenerative disc disease, most prominent at T6 through T10. Anterior bridging osteophytes from T6-T10. Incompletely visualized fusion bar extending from the T10 vertebral body to the lumbar spine. Soft tissues: No paravertebral masses or hematomas. Visualized posteromedial lungs appear clear. IMPRESSION: No acute compression deformity or traumatic subluxation. Moderate, multilevel degenerative disc disease. Agree with preliminary report. Dictated by: Fuad Ayers M.D. on 10/02/2023 at 8:05 Approved by: Fuad Ayers M.D. on 10/02/2023 at 8:09
[2023-10-02 01:54] LABS: Ictotest Urine Negative (Negative); Urine Volume 10mL (spun)
--- NOTE | 2023-10-02 01:55 | ED.FALL ---
HPI - Fall General Chief Complaint: Fall Stated Complaint: GLF, no LOC Time Seen by Provider: 10/02/23 01:43 Source: EMS Mode of arrival: EMS History of Present Illness HPI Narrative: 68-year-old male with recurrent falls today. History of chronic back pain, recent ED visit here 2 days ago for back pain issue, when he was discharged from the emergency department he was in the hospital parking lot and had a ground level fall, sustaining bruising to his face, also abrasions to both knees, had another ED visit for those injuries but was discharged home. Had been feeling okay the next day. However this evening he has had a fall from getting out of his bed, then 3 other ground level falls, feels like he has generalized weakness. He has required assistance from family members to help with moving around. No focal weakness to face arm or leg. No seizure activity. No incontinence of urine or stool. Does not feel feverish. He has a chronic productive cough, vitals feel that he has any shortness of breath or chest discomfort. He denies abdominal discomfort. No nausea vomiting or diarrhea, no black or red stools. Non painful urination, no bloody or dark urine, no cloudy urine. He denies drug or alcohol use. Related Data Home Medications Medication Instructions Recorded Confirmed atorvastatin PO 09/30/21 09/30/21 dulaglutide [Trulicity] SUBCUT 09/30/21 09/30/21 hydrochlorothiazide PO 09/30/21 09/30/21 insulin glargine [Lantus Solostar SUBCUT 09/30/21 09/30/21 U-100 Insulin] lisinopril PO 09/30/21 09/30/21 metformin 500 mg tablet 500 mg PO DAILY 09/30/21 09/30/21 Previous Rx's Medication Instructions Recorded cyclobenzaprine 5 mg tablet 10 mg (2 x 5 mg) PO BID PRN muscle 06/08/19 spasm #30 tabs hydrocodone 5 mg-acetaminophen 325 1 tab PO BID PRN pain #7 tabs 06/08/19 mg tablet (Louann) benzonatate 100 mg capsule 100 mg PO BID PRN cough #20 caps 09/30/21 hydroxyzine pamoate 50 mg capsule 50 mg PO TID PRN nausea and 01/29/22 (Vistaril) vomiting #30 caps cyclobenzaprine 10 mg tablet 10 mg PO TID PRN muscle spasm #30 09/30/23 tabs Allergies Allergy/AdvReac Type Severity Reaction Status Date / Time morphine [MORPHINE] Allergy Unknown Verified 09/30/21 17:57 Review of Systems Constitutional Constitutional: Denies chills and Denies fever(s) Eyes Eyes: Denies change in vision and Denies loss of vision ENT Ears, Nose, Mouth, and Throat: Denies change in voice, Denies neck pain and Denies sore throat Cardiovascular Cardiovascular: Denies chest pain and Denies dyspnea Respiratory Respiratory: Denies dyspnea Musculoskeletal Musculoskeletal: Denies neck pain Comments: Abrasions to both knees from his fall 2 days ago, no re-injury seems to be present from his falls last night. Chronic back pain, prior fusion thoracic spine Integumentary/Breasts Comments: Abrasions to his face and both knees from recent fall 2 days ago Neurologic Neurologic: Denies loss of vision Allergic/Immunologic Allergic/Immunologic: Denies urticaria Patient History Medical History (Updated 10/02/23 @ 07:36 by Moreno Martinez MD) Diabetes HLD (hyperlipidemia) HTN (hypertension) COPD (chronic obstructive pulmonary disease) Fusion of lumbar spine Social History household members: spouse Smoking Status: Never smoker alcohol intake: never Smoking Status: Never smoker alcohol intake frequency: holidays/special occasions only Substance Use Type: does not use Exam Initial Vital Signs Initial Vital Signs: Vital Signs Temperature 101.7 F H 10/01/23 22:17 Pulse Rate 113 H 10/01/23 22:17 Respiratory Rate 23 10/01/23 22:17 Blood Pressure 137/81 10/01/23 22:17 Pulse Oximetry 88 L 10/01/23 22:17 Oxygen Delivery Method Room Air 10/01/23 22:17 HENMT Head: other (No obvious scalp lesions or swelling or tenderness or crepitance) Ears: TM's normal bilaterally Nose: TMJ nontender Face and sinus: face symmetric Mouth: oral mucosae normal Teeth and gingiva: dentition normal HENMT Other: Forehead abrasions bilateral, and also up her nose that appear old, patient states they were from his fall 2 days ago, no new facial injuries today Eyes General: Yes appearance normal, both eyes and all related structures Conjunctivae: conjunctivae normal Sclera: sclerae normal EOM: EOM intact bilaterally Neck Neck: normal visual inspection Chest Chest: normal inspection of the chest Resp Effort & Inspection: normal respiratory effort, able to speak in complete sentences, cough, not labored, no respiratory distress, no stridor, not tachypneic, no use of accessory muscles and No prolonged expiratory phase Auscultation: clear to auscultation bilaterally Cardio Rate: regular rate Rhythm: regular rhythm Heart Sounds: no murmurs GI Inspection: normal to inspection and not scaphoid Palpation: soft and No rigid Auscultation: normal bowel sounds Other: Deferred, patient had no groin penis or scrotal complaints of pain Back/Spine/Pelvis Back: normal to inspection Thoracic/Lumbar Spine: thoracic and lumbar spine normal to inspection and straight leg raise negative bilaterally Sacroiliac Joints: nontender Other: No midline or paraspinous tenderness, no bruising or abrasions or swelling Skin Other: Skin abrasions to forehead face noted as above, also anterior knees bilaterally, from fall 2 days ago, no obvious cellulitis component at present Neuro General: patient oriented x3 Cranial Nerves: CN's II-XI intact bilaterally Motor: strength 5/5 throughout Sensory Exam: no sensory deficits noted Extrem Other: No gross deformities of upper or lower extremities, normal range of motion upper extremities from shoulder elbow wrist hand fingers, without difficulties. Lower extremity no distal injuries to toes foot ankles for legs, there are small prepatellar abrasions to both knees that appear old, some scabbing, no fluctuance, no surrounding erythema or discharge. He is able to flex and extend at his knees and his hips. No tenderness thighs or hips Psych Appearance: grossly normal Speech and Movement: not agitated and speech not slurred Course Course Course Narrative: Recent falls and negative injuries, new series of 4 falls today, forehead abrasions from recent falls 2 days ago seem unchanged, no injuries there per patient report, old-appearing abrasions to knees that are otherwise unremarkable exam. Triage fever noted, possible SIRS, lab evaluation initiated, chest x-ray urinalysis, initial lactate was run from EMS draw, repeated on arrival which was normal, unclear if initial elevated lactate was spurious from EMS. No known seizure activity. Patient did receive some fluids but not 30 cc/kilos given repeat lactate normal. Blood cultures were sent. New hypoxia in setting of fever, considered pneumonia, patient also has been coughing, chest x-ray without obvious intraoral sites however. IV ceftriaxone and IV azithromycin given after blood cultures in case of pneumonia. Prior lumbar surgery. Chest x-ray without obvious pulmonary infiltrate, ED wet read. CT head, cervical spine, T-spine, lumbar spine negative studies. EKG sinus rhythm, troponin negative. Frequent falls, including a couple of days ago, also for today, chronic back pain with recent flare, negative brain and spinal imaging, with new fever and new hypoxia and recent cough, consider pneumonia not present on chest x-ray, no abdominal pain or tenderness on examination, there might be some other source of sepsis/infection not yet identified. Consider admission, patient agreeable, will contact hospitalist. Orders Ordered: Discontinued Medications Acetaminophen (Acetaminophen 325 Mg Tablet) 650 mg PO Q6H PRN PRN Reason: Fever/Mild Pain (1-3) Last Admin: 10/02/23 09:25 Dose: 650 mg Documented By: SREEDHAR Albuterol (Albuterol 1.25 Mg/3 Ml Neb (Pediatric)) 1.25 mg INH NOW ONE Stop: 10/02/23 04:21 Last Admin: 10/02/23 04:34 Dose: 1.25 mg Documented By: DEWAYNE Cyclobenzaprine HCl (Cyclobenzaprine 10 Mg Tablet) 10 mg PO BID PRN PRN Reason: muscle spasm Enoxaparin Sodium (Enoxaparin 40 Mg/0.4 Ml Syringe) 40 mg SUBCUT DAILY [facility] Last Admin: 10/02/23 09:28 Dose: 40 mg Documented By: SREEDHAR Sodium Chloride (Normal Saline 0.9%) 1,000 mls @ 1,000 mls/hr IV BOLUS ONE Stop: 10/01/23 23:44 Last Infusion: 10/02/23 00:05 Dose: Infused Documented By: Admin: 10/01/23 23:20 Dose: 1,000 mls/hr Documented By: Ceftriaxone Sodium 1,000 mg/ (Sodium Chloride) 100 mls @ 200 mls/hr IV NOW ONE Stop: 10/02/23 04:20 Last Infusion: 10/02/23 05:09 Dose: Infused Documented By: Admin: 10/02/23 04:40 Dose: 200 mls/hr Documented By: TALITA Azithromycin 500 mg/ Dextrose 250 mls @ 250 mls/hr IV NOW ONE Stop: 10/02/23 04:20 Last Infusion: 10/02/23 07:16 Dose: Infused Documented By: Infusion: 10/02/23 06:09 Dose: 250 mls/hr Documented By: Infusion: 10/02/23 06:07 Dose: 250 mls/hr Documented By: Infusion: 10/02/23 05:15 Dose: 0 mls/hr Documented By: Admin: 10/02/23 05:13 Dose: 250 mls/hr Documented By: TING Ceftriaxone Sodium 1,000 mg/ (Sodium Chloride) 100 mls @ 200 mls/hr IV Q24H [facility] Last Admin: 10/02/23 06:21 Dose: Not Given Documented By: ADOLFO Piperacillin Sod/Tazobactam (Sod 4.5 gm/ Sodium Chloride) 100 mls @ 25 mls/hr IV Q8H [facility] Stop: 10/02/23 12:00 Last Admin: 10/02/23 07:55 Dose: 25 mls/hr Documented By: SREEDHAR Dextrose (D10w) 100 mls @ 1,200 mls/hr IV PRN PRN PRN Reason: Hypoglycemia Sodium Chloride (Normal Saline 0.9%) 1,000 mls @ 84 mls/hr IV CONT [facility] Last Admin: 10/02/23 09:28 Dose: 84 mls/hr Documented By: SREEDHAR Piperacillin Sod/Tazobactam (Sod 3.375 gm/ Sodium Chloride) 100 mls @ 25 mls/hr IV Q8H [facility] [place] Last Admin: 10/02/23 16:03 Dose: 25 mls/hr Documented By: SREEDHAR Magnesium Sulfate (Magnesium Sulfate) 4 gm in 100 mls @ 25 mls/hr IV NOW ONE Stop: 10/02/23 18:32 Last Admin: 10/02/23 15:24 Dose: 25 mls/hr Documented By: SREEDHAR Co-signed By: ANICETO Insulin Human Lispro (Insulin Lispro 100 Unit/Ml 3ml Vial) 0 unit SUBCUT Q6H [facility]; Protocol Last Admin: 10/02/23 14:29 Dose: Not Given Documented By: Admin: 10/02/23 09:09 Dose: Not Given Documented By: CLL Magnesium Hydroxide (Magnesium Hydroxide 30 Ml Udc) 30 ml PO DAILY PRN PRN Reason: Constipation Naloxone HCl (Naloxone 0.4 Mg/Ml Vial) 0.2 mg IV Q2MIN PRN PRN Reason: Opiate Reversal Ondansetron HCl (Ondansetron 4 Mg/2 Ml Inj) 4 mg IV NOW PRN PRN Reason: Nausea And Vomiting Ondansetron HCl (Ondansetron 4 Mg Odt) 4 mg SL NOW PRN PRN Reason: Nausea And Vomiting Ondansetron HCl (Ondansetron 4 Mg Odt) 4 mg PO Q8HR PRN PRN Reason: Nausea And Vomiting Consultations Consultation #1: Case discussed with hospitalist Dr. Martinez, who would like CT angiogram of the chest with IV on the CT abdomen pelvis imaging to look for additional causes of infection/sepsis and also for PE given new hypoxia recent trauma risk factor. He accepts patient for admission to the hospital Time: 05:04 Vital Signs Vital signs: Vital Signs - 8 hr 10/01/23 22:17 10/01/23 23:30 10/02/23 00:00 Temperature 101.7 F H Pulse Rate 113 H 103 H 101 H Respiratory Rate 23 26 H 29 H Blood Pressure 137/81 150/73 H 151/73 H Pulse Oximetry 88 L 93 92 Oxygen Delivery Method Room Air Room Air Room Air Oxygen Flow Rate Fraction of Inspired Oxygen 10/02/23 00:28 10/02/23 00:30 10/02/23 00:30 Temperature Pulse Rate 96 H 96 H Respiratory Rate 28 H 28 H Blood Pressure 166/77 H Pulse Oximetry 95 95 Oxygen Delivery Method Nasal Cannula Nasal Cannula Oxygen Flow Rate 2 2 Fraction of Inspired Oxygen 10/02/23 01:00 10/02/23 01:24 10/02/23 01:30 Temperature 100.4 F H Pulse Rate 99 H 109 H Respiratory Rate 31 H 22 Blood Pressure Pulse Oximetry 95 99 Oxygen Delivery Method Nasal Cannula Nasal Cannula Oxygen Flow Rate 2 2 Fraction of Inspired Oxygen 10/02/23 01:30 10/02/23 02:00 10/02/23 02:30 Temperature Pulse Rate 100 H 95 H Respiratory Rate 31 H 26 H Blood Pressure 134/95 H Pulse Oximetry 94 94 Oxygen Delivery Method Oxygen Flow Rate Fraction of Inspired Oxygen 10/02/23 03:00 10/02/23 03:30 10/02/23 03:57 Temperature Pulse Rate 92 H 92 H 91 H Respiratory Rate 29 H 29 H 28 H Blood Pressure 141/63 H Pulse Oximetry 93 94 96 Oxygen Delivery Method Oxygen Flow Rate Fraction of Inspired Oxygen 10/02/23 04:34 Temperature Pulse Rate 90 Respiratory Rate 18 Blood Pressure Pulse Oximetry 91 Oxygen Delivery Method Room Air Oxygen Flow Rate 0 Fraction of Inspired Oxygen 21 MDM - Fall Differential Diagnosis Differential diagnosis: Likely syncope, compression fracture, concussion without loss of consciousness and other (In setting of fever consider sepsis, also hypoxia, consider pneumonia. Recent trauma consider pulmonary embolus) Condition is:: Improved Lab Data Attestation: I reviewed the patient's lab results. 10/02/23 06:24 10/02/23 06:24 Labs: Lab Results 10/01/23 10/01/23 10/02/23 Range/Units 22:16 22:55 00:07 WBC 14.0 H (4.5-11.0) X10^3/uL RBC 4.27 L (4.5-5.9) X10^6/uL Hgb 12.8 L (13.5-17.5) g/dL Hct 38.3 L (41-53) % MCV 89.8 (80-100) fL MCH 30.0 (26-34) PG MCHC 33.4 (30-36) % RDW 13.8 (11.6-14.8) % Plt Count 207 (150-400) X10^3/uL Neut % (Auto) 61.4 (50-75) % Lymph % (Auto) 27.5 (25-40) % [place] % (Auto) 9.7 (3-14) % Eos % (Auto) 1.1 L (2-4) % Baso % (Auto) 0.3 (0-2) % Neut # (Auto) 8600 H (5792-1359) /uL Lymph # (Auto) 3800 (2410-9964) /uL [place] # (Auto) 1400 H (0-900) /uL Eos # (Auto) 200 (0-450) /uL Baso # (Auto) 0 (0-100) /uL PT 12.8 H (9.4-12.5) SECONDS INR 1.1 (0.9-1.3) APTT 32 (25.1-36.5) SECONDS Sodium 138 (137-145) mmol/L Potassium 3.6 (3.4-5.1) mmol/L Chloride 103 (98-107) mmol/L Carbon Dioxide 23 (22-32) mmol/L BUN 23 H (9-20) mg/dL Creatinine 0.97 (0.66-1.25) mg/dL Estimated GFR > 60 (>60) mL/min BUN/Creatinine Ratio 23.7 H (6-22) Glucose 153 H (80-110) mg/dL Lactate 5.7 H* 1.7 (0.7-2.1) mmol/L Calcium 9.1 (8.4-10.2) mg/dL Total Bilirubin 2.2 H (0.2-1.3) mg/dL AST 42 (17-59) IU/L ALT 31 (<50) IU/L Alkaline Phosphatase 56 (38-126) U/L Ammonia < 9 L (9-30) umol/L Total Protein 7.8 (6.3-8.2) g/dL Albumin 4.6 (3.5-5.0) g/dL Globulin 3.2 (1.7-4.1) g/dL Albumin/Globulin Ratio 1.4 (1.0-2.8) Lipase 45 (23-300) U/L Procalcitonin 0.23 (<0.5) ng/mL Ur Bilirubin Confirm (Negative) Urine RBC (0-5/HPF) Urine WBC (0-5/HPF) Ur Squamous Epith Cells (0-5/HPF) Amorphous Sediment Urine Bacteria (None) Hyaline Casts (None) Granular Casts (None) Urine Mucus (Negative) Ur Culture Indicated? Vol Urine Centrifuged 10/02/23 Range/Units 01:25 WBC (4.5-11.0) X10^3/uL RBC (4.5-5.9) X10^6/uL Hgb (13.5-17.5) g/dL Hct (41-53) % MCV (80-100) fL MCH (26-34) PG MCHC (30-36) % RDW (11.6-14.8) % Plt Count (150-400) X10^3/uL Neut % (Auto) (50-75) % Lymph % (Auto) (25-40) % [place] % (Auto) (3-14) % Eos % (Auto) (2-4) % Baso % (Auto) (0-2) % Neut # (Auto) (1009-7744) /uL Lymph # (Auto) (2638-3101) /uL [place] # (Auto) (0-900) /uL Eos # (Auto) (0-450) /uL Baso # (Auto) (0-100) /uL PT (9.4-12.5) SECONDS INR (0.9-1.3) APTT (25.1-36.5) SECONDS Sodium (137-145) mmol/L Potassium (3.4-5.1) mmol/L Chloride (98-107) mmol/L Carbon Dioxide (22-32) mmol/L BUN (9-20) mg/dL Creatinine (0.66-1.25) mg/dL Estimated GFR (>60) mL/min BUN/Creatinine Ratio (6-22) Glucose (80-110) mg/dL Lactate (0.7-2.1) mmol/L Calcium (8.4-10.2) mg/dL Total Bilirubin (0.2-1.3) mg/dL AST (17-59) IU/L ALT (<50) IU/L Alkaline Phosphatase (38-126) U/L Ammonia (9-30) umol/L Total Protein (6.3-8.2) g/dL Albumin (3.5-5.0) g/dL Globulin (1.7-4.1) g/dL Albumin/Globulin Ratio (1.0-2.8) Lipase (23-300) U/L Procalcitonin (<0.5) ng/mL Ur Bilirubin Confirm Negative (Negative) Urine RBC 0-1/hpf (0-5/HPF) Urine WBC 0-1/hpf (0-5/HPF) Ur Squamous Epith Cells 1-5 /hpf (0-5/HPF) Amorphous Sediment 2+ Urine Bacteria Occasional (0-1) (None) Hyaline Casts 0-1/lpf (None) Granular Casts 0-1/lpf (None) Urine Mucus 2+ H (Negative) Ur Culture Indicated? Cult not indicated Vol Urine Centrifuged 10ml (spun) Urine Dip Bedside Urine Glucose Negative Bedside Urine Bilirubin + 1 Bedside Urine Ketone - Negative Urine Specific [place] 1.025 Bedside Urine Occult Blood - Negative Bedside Urine pH 6.0 Bedside Urine Protein +/- 15 Bedside Urine Urobilinogen - Negative Bedside Urine Nitrite - Negative Bedside Urine Leukocytes - Negative Esterase ECG Data Attestation: I personally reviewed and interpreted this ECG as follows: Prior ECG tracings: not available for review Interpretation: Sinus tachycardia with rate 105, normal intervals, PVCs noted unifocal, no sustained ectopy. No obvious ST segment elevation or depression changes. None available for comparison Critical Care Time Critical Care Time Critical Care Time: Yes Total Critical Care Time: 45 Attestation: The high probability of a clinically significant, sudden or life threatening deterioration of the [cardiopulmonary] system(s) required my full and direct attention, intervention and personal management. The aggregate critical care time was [] minutes. This time is in addition to time spent performing reported procedures but includes the following: [X] Data Review and interpretation [X] Patient assessment and monitoring of vital signs [X] Documentation [X] Medication orders and management Discharge Plan Departure Patient Disposition: Admitted As Inpatient Clinical Impression: Frequent falls, Hypoxia, Severe sepsis, Pneumonia Admit Date/Time: 10/02/23 05:02 Admit Provider: Moreno Gaston
[2023-10-02 01:56] LABS: RBC Urine 0-1/HPF (0-5/HPF); WBC Urine 0-1/HPF (0-5/HPF)
[2023-10-02 01:57] LABS: Amorphous Sediment Urine 2+; Bacteria Urine Occasional (0-1); Granular Casts Urine 0-1/LPF; Hyaline Casts Urine 0-1/LPF; Mucus Urine 2+ (Negative); Squamous Epithelial Cell Urine 1-5 /HPF (0-5/HPF)
[2023-10-02 01:58] LABS: Culture Indicated Urine Cult Not Indicated
[2023-10-02] MEDS: ALBUTEROL 1.25 MG/3 ML NEB (PEDIATRIC) INH (04:34)
[2023-10-02] MEDS: cefTRIAXone 1,000 MG in SODIUM CHLORIDE 0.9% 100 ML 200 MG IV (04:40)
--- NOTE | 2023-10-02 05:04 | DI.CT.S_ITS ---
PROCEDURE: CT ANGIO CHEST INDICATIONS: syncope/falls, new hypoxia TECHNIQUE: After the administration of intravenous contrast, 2 mm thick sections acquired from the pulmonary apices to the posterior costophrenic angles. 3-dimensional maximum intensity projection (MIP) coronal and sagittal reformats were then acquired through the thorax. For radiation dose reduction, the following was used: automated exposure control, adjustment of mA and/or kV according to patient size. COMPARISON: None. FINDINGS: Image quality: Suboptimal due to contrast timing. Pulmonary arteries: Pulmonary arteries are normal in size, and demonstrate no intraluminal filling defects to the proximal segmental level to suggest pulmonary embolism. Lower Neck: No enlarged lymph nodes. Thyroid: No thyroid nodules which require sonographic follow up, per consensus guidelines. Axillae: No enlarged lymph nodes. Chest Wall: Unremarkable. Bones: Please see same day thoracic CT. Lungs and Pleura: Small pleural effusions and scattered pleural parenchymal bands. A few small solid pulmonary nodules, largest measuring 3 millimeters in the anterior left upper lobe (series 6, image 133). Heart: Heart size is enlarged. No pericardial effusion. Moderate coronary artery calcifications. Thoracic Vessels: No aortic aneurysm. Mediastinum and Mariaelena: No enlarged lymph nodes. Esophagus: No wall thickening. No hiatal hernia. Upper Abdomen: Please see same day CT. IMPRESSION: No pulmonary embolus. No acute cardiopulmonary process. Solid pulmonary micronodules. Consider 12 month follow-up if at high risk for developing lung cancer, per Fleischner Society guidelines. Dictated by: Fuad Ayers M.D. on 10/02/2023 at 8:30 Approved by: Fuad Ayers M.D. on 10/02/2023 at 8:33
--- NOTE | 2023-10-02 05:04 | DI.CT.S_ITS ---
PROCEDURE: CT ABDOMEN PELVIS W CON INDICATIONS: sepsis, unclear cause, image abd with chest per Hopsitalist TECHNIQUE: After the administration of intravenous contrast, axial sections acquired from the lung bases to the pubic symphysis. Coronal and sagittal reformats were performed. For radiation dose reduction, the following was used: automated exposure control, adjustment of mA and/or kV according to patient size. COMPARISON: None. FINDINGS: Image quality: Diagnostic. Lower Chest: Pleural parenchymal bands of the lower lobes. Cardiomegaly. Herniated peritoneal fat through the esophageal hiatus. Small hiatal hernia. ABDOMEN: Liver: No solid mass. Gallbladder: Gallbladder wall thickening and gallbladder distension. No radiopaque stones. Pericholecystic edema. Biliary ducts: No biliary dilation. Pancreas: No ductal dilation. Spleen: Size is within normal limits. Adrenal Glands: No adrenal nodules. Kidneys and Ureters: No hydronephrosis. No solid mass. No complex renal cystic lesion which requires follow up. Stomach and Bowel: Normal colonic caliber, without significant wall thickening. Colonic diverticulosis without evidence of diverticulitis. Peritoneum: No abnormal intraperitoneal fluid. No free air. Ventral Wall: No significant ventral hernia. Abdominal Nodes: No retroperitoneal or mesenteric adenopathy by size criteria. Vessels: Aorta and inferior vena cava are normal in size. PELVIS: Pelvic Organs: Unremarkable. Bladder: No bladder wall thickening, accounting for underdistention. Pelvic Nodes: No enlarged lymph nodes. Miscellaneous: No inguinal hernias are seen. Bones: No aggressive osseous abnormality. Surgical fusion of the thoracolumbar spine. Stable endplate deformity of the T11 vertebral body. IMPRESSION: Suspected acute cholecystitis. Recommend upper quadrant ultrasound to evaluate for stones. Agree with preliminary report. Dictated by: Fuad Ayers M.D. on 10/02/2023 at 8:21 Approved by: Fuad Ayers M.D. on 10/02/2023 at 8:30
[2023-10-02] MEDS: AZITHROMYCIN 500 MG in DEXTROSE 5% IN WATER 250 ML 250 MG IV (05:13)
[2023-10-02 06:46] LABS: Add Manual Diff / Slide Review NO; Basophils Absolute Auto 100 /uL (0-100); Basophils Percent Auto 0.6 % (0-2); Eosinophils Absolute Auto 100 /uL (0-450); Eosinophils Percent Auto 1.5 % (2-4); Hematocrit 34.9 % (41-53); Hemoglobin 11.8 g/dL (13.5-17.5); Lymphocytes Absolute Auto 2800 /uL (1100-4500); Lymphocytes Percent Auto 29.5 % (25-40); Mean Corpuscular HGB Conc 33.9 % (30-36); Mean Corpuscular Hemoglobin 30.3 PG (26-34); Mean Corpuscular Volume 89.5 fL (80-100); Monocytes Absolute Auto 900 /uL (0-900); Monocytes Percent Auto 10.1 % (3-14); Neutrophils Absolute Auto 5500 /uL (1500-7000); Neutrophils Percent Auto 58.3 % (50-75); Platelet Count 168 X10^3/uL (150-400); Red Cell Distribution Width 13.5 % (11.6-14.8); White Blood Cell Count 9.4 X10^3/uL (4.5-11.0)
--- NOTE | 2023-10-02 06:55 | DI.US.S_ITS ---
PROCEDURE: US ABDOMEN LIMITED INDICATIONS: suspected cholecystitis - RUQ US TECHNIQUE: Real-time focused scanning was performed of the abdomen, with image documentation. COMPARISON: [facility], CT, CT LUMBAR SPINE WO CON, 10/02/2023, 2:01. [facility], CT, CT ABDOMEN PELVIS W CON, 10/02/2023, 5:19. FINDINGS: Markedly increased hepatic echogenicity, the deep field is not well seen. Pericholecystic fluid and wall thickening measuring 7 mm. No discrete gallstones. No focal tenderness over the gallbladder. IMPRESSION: Very limited ultrasound due to body habitus, bowel gas, and hepatic shadowing. Pericholecystic fluid and wall thickening are seen, no discrete gallstones on this limited evaluation. Differential includes reactive changes from hepatitis versus cholecystitis. Markedly increased hepatic echogenicity, nonspecific, most commonly due to steatosis. Dictated by: Vidal Mejía M.D. on 10/02/2023 at 9:37 Approved by: Vidal Mejía M.D. on 10/02/2023 at 9:39
[2023-10-02 06:57] LABS: Blood Urea Nitrogen 17 mg/dL (9-20); Calcium 8.3 mg/dL (8.4-10.2); Carbon Dioxide 28 mmol/L (22-32); Chloride 104 mmol/L (98-107); Estimated Glomerular Filt Rate > 60 mL/min (>60); Glucose 119 mg/dL (80-110); HEMOLYSIS < 15 (0-50); Potassium 3.6 mmol/L (3.4-5.1); Sodium 138 mmol/L (137-145)
--- NOTE | 2023-10-02 07:19 | P.HP_ITS ---
History of Present Illness History of Present Illness Date Patient Seen: 10/02/23 Time Patient Seen: 06:30 Chief complaint: GLF, no LOC Narrative: 68 y/o with PMH of chronic LBP, degenerative disease of LS, recurrent injury falls, most of which happened in the last few days, presented to ED after another 5 GLFs on a day of admission. In the ED with leukocytosis, hypoxemic, suspected for respiratory infection given chronic cough, given empiric Rocephin. Subsequent CTA negative for PE or infiltrates and CT abdomen with suspected cholecystitis. [facility] Medical History (Updated 10/02/23 @ 07:36 by Moreno Martinez MD) Diabetes HLD (hyperlipidemia) HTN (hypertension) COPD (chronic obstructive pulmonary disease) Fusion of lumbar spine Social History household members: spouse Smoking Status: Never smoker alcohol intake: never Meds Home Medications and Allergies Home Medications Medication Instructions Recorded Confirmed Type cyclobenzaprine 5 mg tablet 10 mg (2 x 5 mg) PO BID PRN muscle 06/08/19 09/30/21 Rx spasm #30 tabs hydrocodone 5 mg-acetaminophen 325 1 tab PO BID PRN pain #7 tabs 06/08/19 09/30/21 Rx mg tablet (Leupp) atorvastatin PO 09/30/21 09/30/21 History benzonatate 100 mg capsule 100 mg PO BID PRN cough #20 caps 09/30/21 09/30/21 Rx dulaglutide [Trulicity] SUBCUT 09/30/21 09/30/21 History hydrochlorothiazide PO 09/30/21 09/30/21 History insulin glargine [Lantus Solostar SUBCUT 09/30/21 09/30/21 History U-100 Insulin] lisinopril PO 09/30/21 09/30/21 History metformin 500 mg tablet 500 mg PO DAILY 09/30/21 09/30/21 History hydroxyzine pamoate 50 mg capsule 50 mg PO TID PRN nausea and 01/29/22 Rx (Vistaril) vomiting #30 caps cyclobenzaprine 10 mg tablet 10 mg PO TID PRN muscle spasm #30 09/30/23 Rx tabs Allergies Allergy/AdvReac Type Severity Reaction Status Date / Time morphine [MORPHINE] Allergy Unknown Verified 09/30/21 17:57 Review of Systems Constitutional Comments: generalized weakness Eyes Comments: w/o vision changes Cardiovascular Comments: w/o chest pain Respiratory Comments: short of breath, cough Gastrointestinal Comments: Decreased appetite. Without N/V/abdominal pain Genitourinary Comments: w/o dysuria Musculoskeletal Comments: low back pain Neurologic Comments: episodic loss of balance and falls Exam Vital Signs (past 8 hours): - 10/01/23 23:30 10/02/23 00:00 10/02/23 00:28 Temperature Pulse Rate 103 H 101 H 96 H Respiratory Rate 26 H 29 H 28 H Blood Pressure 150/73 H 151/73 H Pulse Oximetry 93 92 95 Oxygen Delivery Method Room Air Room Air Nasal Cannula Oxygen Flow Rate 2 Fraction of Inspired Oxygen 10/02/23 00:30 10/02/23 00:30 10/02/23 01:00 Temperature Pulse Rate 96 H 99 H Respiratory Rate 28 H 31 H Blood Pressure 166/77 H Pulse Oximetry 95 95 Oxygen Delivery Method Nasal Cannula Nasal Cannula Oxygen Flow Rate 2 2 Fraction of Inspired Oxygen 10/02/23 01:24 10/02/23 01:30 10/02/23 01:30 Temperature 100.4 F H Pulse Rate 109 H Respiratory Rate 22 Blood Pressure 134/95 H Pulse Oximetry 99 Oxygen Delivery Method Nasal Cannula Oxygen Flow Rate 2 Fraction of Inspired Oxygen 10/02/23 02:00 10/02/23 02:30 10/02/23 03:00 Temperature Pulse Rate 100 H 95 H 92 H Respiratory Rate 31 H 26 H 29 H Blood Pressure Pulse Oximetry 94 94 93 Oxygen Delivery Method Oxygen Flow Rate Fraction of Inspired Oxygen 10/02/23 03:30 10/02/23 03:57 10/02/23 03:58 Temperature Pulse Rate 92 H 91 H Respiratory Rate 29 H 28 H Blood Pressure 141/63 H 141/65 H Pulse Oximetry 94 96 Oxygen Delivery Method Oxygen Flow Rate Fraction of Inspired Oxygen 10/02/23 03:58 10/02/23 04:00 10/02/23 04:00 Temperature Pulse Rate 91 H 90 Respiratory Rate 28 H 28 H Blood Pressure 118/53 L Pulse Oximetry 95 92 Oxygen Delivery Method Oxygen Flow Rate Fraction of Inspired Oxygen 10/02/23 04:30 10/02/23 04:30 10/02/23 04:34 Temperature Pulse Rate 91 H 90 Respiratory Rate 28 H 18 Blood Pressure 125/66 Pulse Oximetry 90 L 91 Oxygen Delivery Method Room Air Oxygen Flow Rate 0 Fraction of Inspired Oxygen 21 10/02/23 05:00 10/02/23 05:00 10/02/23 05:14 Temperature 99.6 F Pulse Rate 90 93 H Respiratory Rate 27 H 22 Blood Pressure 136/66 Pulse Oximetry 91 93 Oxygen Delivery Method Oxygen Flow Rate Fraction of Inspired Oxygen 10/02/23 05:14 10/02/23 06:20 Temperature 99.1 F Pulse Rate 97 H Respiratory Rate 19 Blood Pressure 179/80 H Pulse Oximetry 95 Oxygen Delivery Method Room Air Nasal Cannula Oxygen Flow Rate 0 Fraction of Inspired Oxygen Fraction of Inspired Oxygen 21 SaO2/FiO2 Ratio 433 Oxygen Delivery Method Room Air,Nasal Cannula Oxygen Flow Rate 0 Const Other: sitting in bed in no distress HENMT Other: normocephalic Resp Other: w/o wheezing Cardio Other: RRR GI Other: w/o distension or tenderness Skin Other: w/o rashes Neuro Other: w/o deficits Psych Other: lucid, appropriate mood Objective Labs 10/02/23 06:24 10/02/23 06:24 Labs: Laboratory Results - last 24 hr 10/01/23 10/01/23 10/02/23 22:16 22:55 00:07 WBC 14.0 H RBC 4.27 L Hgb 12.8 L Hct 38.3 L MCV 89.8 MCH 30.0 MCHC 33.4 RDW 13.8 Plt Count 207 Neut % (Auto) 61.4 Lymph % (Auto) 27.5 [place] % (Auto) 9.7 Eos % (Auto) 1.1 L Baso % (Auto) 0.3 Neut # (Auto) 8600 H Lymph # (Auto) 3800 [place] # (Auto) 1400 H Eos # (Auto) 200 Baso # (Auto) 0 PT 12.8 H INR 1.1 APTT 32 Sodium 138 Potassium 3.6 Chloride 103 Carbon Dioxide 23 BUN 23 H Creatinine 0.97 Estimated GFR > 60 BUN/Creatinine Ratio 23.7 H Glucose 153 H Lactate 5.7 H* 1.7 Calcium 9.1 Total Bilirubin 2.2 H AST 42 ALT 31 Alkaline Phosphatase 56 Ammonia < 9 L Total Protein 7.8 Albumin 4.6 Globulin 3.2 Albumin/Globulin Ratio 1.4 Lipase 45 Procalcitonin 0.23 Ur Bilirubin Confirm Urine RBC Urine WBC Ur Squamous Epith Cells Amorphous Sediment Urine Bacteria Hyaline Casts Granular Casts Urine Mucus Ur Culture Indicated? Vol Urine Centrifuged 10/02/23 10/02/23 01:25 06:24 WBC 9.4 RBC 3.90 L Hgb 11.8 L Hct 34.9 L MCV 89.5 MCH 30.3 MCHC 33.9 RDW 13.5 Plt Count 168 Neut % (Auto) 58.3 Lymph % (Auto) 29.5 [place] % (Auto) 10.1 Eos % (Auto) 1.5 L Baso % (Auto) 0.6 Neut # (Auto) 5500 Lymph # (Auto) 2800 [place] # (Auto) 900 Eos # (Auto) 100 Baso # (Auto) 100 PT INR APTT Sodium 138 Potassium 3.6 Chloride 104 Carbon Dioxide 28 BUN 17 Creatinine 0.85 Estimated GFR > 60 BUN/Creatinine Ratio 20.0 Glucose 119 H Lactate Calcium 8.3 L Total Bilirubin AST ALT Alkaline Phosphatase Ammonia Total Protein Albumin Globulin Albumin/Globulin Ratio Lipase Procalcitonin Ur Bilirubin Confirm Negative Urine RBC 0-1/hpf Urine WBC 0-1/hpf Ur Squamous Epith Cells 1-5 /hpf Amorphous Sediment 2+ Urine Bacteria Occasional (0-1) Hyaline Casts 0-1/lpf Granular Casts 0-1/lpf Urine Mucus 2+ H Ur Culture Indicated? Cult not indicated Vol Urine Centrifuged 10ml (spun) Assessment & Plan Assessment and plan (1) Frequent falls: Status: Acute (2) Abrasion of knee, bilateral: Status: Acute (3) Traumatic hematoma of head: Status: Acute (4) Acute hypoxemic respiratory failure: Status: Acute (5) COPD (chronic obstructive pulmonary disease): Status: Acute (6) HTN (hypertension): Status: Acute (7) HLD (hyperlipidemia): Status: Acute (8) Diabetes: Status: Acute Assessment & Plan narrative: 1. Recurrent Falls - his mobility and LS/TS ROM is limited and he is following with Sx for operative repair - occasionally loosing balance after Flexeril, or few days ago Tramadol - PT eval 2. Acute Hypoxemia / Cough - diagnosed with COPD less then a year ago, on [facility] only, w/o wheezing or signs of COPD exacerbation - CTA negative for PE or infiltrates - 5 falls in 8 hours - with leukocytosis, possible bronchitis - empiric abx, bronchodilators, O2 prn 3. CT abdomen with suspected cholecystitis - w/o GI complaints - RUQ US pending - empiric Rocephin given in ED for respiratory infection switched to Zosyn - NPO, Sx eval. as needed 4. IDDM type 2 - holding trulicity, lantus, metformin - home meds not updated yet - SS only, NPO for now - until cholecystitis r/o 5. HTN - holding home Lisinopril and HCTZ - meds to be updated 6. HLD - statin at home, on hold DVT prophylaxis - Lovenox
[2023-10-02] MEDS: PIPERACILLIN/TAZO 4.5 GM in SODIUM CHLORIDE 0.9% 100 ML IV (07:55)
[2023-10-02] MEDS: ACETAMINOPHEN 325 MG TABLET 650 MG PO (09:25)
[2023-10-02] MEDS: ENOXAPARIN 40 MG/0.4 ML SYRINGE SUBCUT (09:28)
[2023-10-02] MEDS: SODIUM CHLORIDE 0.9% 1,000 ML 84 ML IV (09:28)
[2023-10-02 10:14] LABS: Alanine Aminotransferase 26 IU/L (<50); Albumin 3.8 g/dL (3.5-5.0); Albumin Globulin Ratio 1.3 (1.0-2.8); Alkaline Phosphatase 48 U/L (38-126); Aspartate Aminotransferase 35 IU/L (17-59); Bilirubin Total 1.9 mg/dL (0.2-1.3); Bilirubin Unconjugated 1.8 mg/dL (0.0-1.1); HEMOLYSIS < 15 (0-50); Total Protein 6.8 g/dL (6.3-8.2)
--- NOTE | 2023-10-02 10:55 | PT.IIE ---
Current Diagnoses Type 2 diabetes mellitus without complications (10/02/23) Hyperlipidemia, unspecified (10/02/23) Essential (primary) hypertension (10/02/23) Chronic obstructive pulmonary disease, unspecified (10/02/23) Acute respiratory failure with hypoxia (10/02/23) Repeated falls (10/02/23) Contusion of unspecified part of head, initial encounter (10/02/23) Abrasion, right knee, initial encounter (10/02/23) Abrasion, left knee, initial encounter (10/02/23) Medical History (Last Updated 10/02/23 @ 07:36 by Moreno Martinez MD) COPD (chronic obstructive pulmonary disease) Diabetes Fusion of lumbar spine HLD (hyperlipidemia) HTN (hypertension) Physical Therapy Inpatient Evaluation/Re-Eval M1 PT/OT-IP Prior Functional Status Start: 10/02/23 12:59 Freq: NEEDED Status: Active Protocol: Document 10/02/23 10:55 AB (Rec: 10/02/23 13:19 AB [id number]) Medical Review Prior Functional Status Medical History Reviewed Yes Communication able to make needs known Mobility and Gait pt stated that he was independent with all mobilities and ambulation without AD Social History Household Members spouse Living Arrangements House Number of Floors (Floors) One Floor Number of Stairs To Enter/Railing? 3 steps B rails to enter the house Home Environment Standard Height Toilet,Tub/ Shower Home Equipment Shower Seat without Backrest, Grab Bars In Shower M2 PT-IP Current Condition Start: 10/02/23 12:59 Freq: NEEDED Status: Active Protocol: Document 10/02/23 10:55 AB (Rec: 10/02/23 13:19 AB [id number]) Physical Therapy Current Condition Current Condition Evaluation Date 10/02/23 Treatment Diagnosis h/o falls; acute hypoxemia; difficulty in walking Onset Date 10/02/23 M3 PT-IP Subjective Start: 10/02/23 12:59 Freq: NEEDED Status: Active Protocol: Document 10/02/23 10:55 AB (Rec: 10/02/23 13:19 AB [id number]) Subjective Physical Therapy Visit Type Type Initial Evaluation Visit Start Time 10:55 Visit Stop Time 11:20 Number of [employer] Visits 0 Physical Therapy Visit Comments Patient Comments agreeable to do PT Therapy Pain Assessment Pain When Pain Assessed At Rest Pain Present Pain Present Pain Reported Location Bilateral Knee Intensity 6 Scale Used Numeric (0 - 10) Pain Management Techniques Distraction,Modification of Treatment,Re-positioning, Timing of Activity with Medications Bilateral Shoulder Intensity 6 Scale Used Numeric (0 - 10) Pain Management Techniques Distraction,Modification of Treatment,Re-positioning, Timing of Activity with Medications M4 PT-IP Mobility and Gait Start: 10/02/23 12:59 Freq: NEEDED Status: Active Protocol: Document 10/02/23 10:55 AB (Rec: 10/02/23 13:19 AB [id number]) PT-Bed Mobility Assessment Supine to Sit Supine to Sit Minimal Assistance PT-Transfer Assessment Sit to and From Stand Sit to and from Stand Moderate Assistance,1 Person Assistance,Use of Upper Extremities Equipment Transfer Assistive Device Gait Belt,Front Wheeled Walker Orthotic/Prosthetic Devices or Brace: No Transfers Transfer Destination Toilet Transfer Technique ambulated Transfer Ability Level of Assist Minimal Assistance,Moderate Assistance,1 Person Assistance ,Use of Upper Extremities Comments Mobility Comments pt supine in bed and agreeable to do PT. obtained PLOF and home set up from pt. pt stated that he has chronic back pain, torn L hamstrings and is awaiting to have a knee replacement with h/o L knee buckling. pt completed supine to sit min A and cues. able to sit on EOB SBA. pt requested to use the toilet. completed sit to stand mod A and cues and ambulated to the toilet using FWW min to mod A and cues ~ 12 ft. pt was able to maintain standing min to mod A and cues using FWW for support while completing toileting. (+) LOB in standing while using urinal needing mod A for steadiness. pt ambulated towards the sink using FWW min to mod A and cues and was able to maintain standing using FWW for support min A while completing handwashing. pt ambulated to the chair using FWW min to mod A and cues. positioned pt on the chair. pt agreed to sit up on the chair. call light and table placed within reach. Gait Assessment Gait Gait Assistance Required: Minimum Assistance,Moderate Assistance Distance (Feet) 12 Able to Maintain Weight Bearing Status Yes During Gait Assistive Devices Assistive Device Gait Belt,Front Wheeled Walker Orthotic/Prosthetic Devices or Brace: No Gait Deviations General Gait Pattern Antalgic,Decreased Stride Length,Decreased Feet Clearance,Step-to Gait Factors Limiting Gait Function Factors Limiting Gait Function Decreased Activity Tolerance, Decreased Sensation,Decreased Strength,Limited Range of Motion,Pain,Poor Balance,Poor Safety Awareness PT-Balance Assessment Sitting Balance and Reactions Static Sitting Balance Ability Good Dynamic Sitting Balance Ability Good Standing Balance and Reactions Static Standing Balance Ability Fair Dynamic Standing Balance Ability Poor Device Used FWW M5 PT-IP Objective Assessments Start: 10/02/23 12:59 Freq: NEEDED Status: Active Protocol: Document 10/02/23 10:55 AB (Rec: 10/02/23 13:19 AB [id number]) Orientation Orientation/Cognition Level of Alertness Alert Orientation Name,Place,Situation Language Function Ability No Deficits Noted Safety Awareness Decreased Safety Awareness Memory Description No Deficits Noted Gross Range of Motion Lower Extremity ROM Assessment Within Functional Limits Strength Lower Extremity Strength Assessment Left Impaired Hip 4-/5 Knee 3+/5 Coordination Assessment Gross Coordination Gross Coordination WNL Sensation Assessment Sensation Sensation Description Numbness Comments Sensation Comments B feet numbness per pt Muscle Tone Muscle Tone WNL Yes M6 PT-IP Treatment Start: 10/02/23 12:59 Freq: NEEDED Status: Active Protocol: Document 10/02/23 10:55 AB (Rec: 10/02/23 13:19 AB [id number]) Physical Therapy Treatment Education Education Provided Safety M7 PT-IP Assessment and Plan Start: 10/02/23 12:59 Freq: NEEDED Status: Active Protocol: Document 10/02/23 10:55 AB (Rec: 10/02/23 13:19 AB [id number]) PT Summary Assessment and Plan Potential Rehabilitation Potential Fair Status of Condition at Evaluation Evolving Summary Impairments Pain,ROM,Strength,Balance, Coordination,Sensation,Tone, Cognition,Bed Mobility, Transfers,Gait,Activity Tolerance Assessment Summary pt is a 68 y/o M who presented to the ED due h/o falls. pt admitted for GLF and also has acute hypoxemia. pt requiring min to mod A with transfers and ambulation using FWW. d/c plan depending on progress and if spouse will be able to assist pt at home. currently will require 15/12 assist. will continue to assess. Goals Bed Mobility Goal Independent Transfer Goal Independent,Front Wheeled Walker Gait Goal Independent,Front Wheel Walker Gait Distance 100 Other Goals improve transfers and ambulation using LRAD ~ 200 ft mod I up/down 3 steps B rails mod I Days to Meet Goals 10 Frequency of Treatment Frequency Of Treatment Once a Day Treatment Plan Physical Therapy Treatment Plan Bed Mobility Training,Transfer Training,Gait Training, Therapeutic Exercise,Balance Retraining,Post Op Education, Discharge Planning,Hot or Cold Pack,Neuromuscular Re-ed, Coordination Retraining,Manual Therapy Precautions Other Precautions falls Recommendations To Nursing Amount of Assist Needed 1 Person Assist Discharge Recommendations PT Discharge Recommendations Home with 15/12 Assist Available,Home Health,SNF Rehab,Home vs SNF Equipment Needed for Home Before FWW Discharge Transportation Needs at Discharge Private Vehicle,Wheelchair/ Cabulance
--- NOTE | 2023-10-02 11:15 | PC.NURSE ---
Assess- Patient is alert and oriented x4. He is NPO at this time and will be having a procedure around 1500. Patient is weak and has fallen several times before being admitted. He knows where he is and his memory is sharp. He does have several abrasions to his arms and legs from falling. Resting now.
--- NOTE | 2023-10-02 14:13 | CM.DANOTE ---
Initial DCP Assessment Note Pt is a 68 yo male, resident of [place], presents with falls, in the ERx2 5.8.24, admitted for further work up. PCP: Shaila Montes Payer: EITAN LANDRY Reviewed chart, pt discussed in multidisciplinary rounds this morning. PT has seen patient and anticipates patient will be able to discharge home w/spouse. OT orders placed and pending. Patient reports he has back problems which he blames for recent falls at home. Therapies recommending HH referral if patient returns home. Patient is indp w/o DME at baseline functioning. No barriers identified at this time to patient's safe discharge home w/family to assist; close outpatient f/u recommended. Possibly HH referral, will plan to discuss with patient and spouse. CM team will plan to follow clinical course closely. MACY Gomez Discharge Planning/Care Management CM Discharge Assessment Start: 10/02/23 14:09 Freq: Status: Active Protocol: Document 10/02/23 14:09 KELI (Rec: 10/02/23 14:13 KELI [id number]) Discharge Planning Assessment Assigned Giving Officer MACY Torres DPOA/Assigned Designee Name Kacey Fish, spouse Contact Information [phone] Advance Directives? No History Provided By Patient,Significant Other, Medical Record Prior Living Arrangements House Household Members spouse Type of transportation used prior to Relies on Others admit Independent with ADL's Yes Is patient alert and oriented? Yes Patient/Family Preference Home with Home Health Barriers to Discharge No Comment If patient declines functionally, consider discussion about SNF Discharge Plan Home Transportation Arrangement Family Referrals Initiated Home Health Additional Comment Need HH preference, will discuss with patient and spouse
[2023-10-02 14:24] LABS: Magnesium 1.5 mg/dL (1.6-2.3)
--- NOTE | 2023-10-02 14:55 | OT.IP.EVAL ---
Current Diagnoses Type 2 diabetes mellitus without complications (10/02/23) Hyperlipidemia, unspecified (10/02/23) Essential (primary) hypertension (10/02/23) Chronic obstructive pulmonary disease, unspecified (10/02/23) Acute respiratory failure with hypoxia (10/02/23) Repeated falls (10/02/23) Contusion of unspecified part of head, initial encounter (10/02/23) Abrasion, right knee, initial encounter (10/02/23) Abrasion, left knee, initial encounter (10/02/23) Past Medical History (Last Updated 10/02/23 @ 07:36 by Moreno Martinez MD) COPD (chronic obstructive pulmonary disease) Diabetes Fusion of lumbar spine HLD (hyperlipidemia) HTN (hypertension) Occupational Therapy Inpatient Evaluation/Re-Eval M1 PT/OT-IP Prior Functional Status Start: 10/02/23 15:08 Freq: NEEDED Status: Active Protocol: Document 10/02/23 15:08 [facility] (Rec: 10/02/23 15:30 [facility] [id number]) Medical Review Prior Functional Status Medical History Reviewed Yes Communication able to make needs known Mobility and Gait pt stated that he was independent with all mobilities and ambulation without AD Activities of Daily Living and IADL's Pt states prior completely independent with all needs and drives. Social History Household Members spouse Living Arrangements House Number of Floors (Floors) One Floor Number of Stairs To Enter/Railing? 3 steps B rails to enter the house Home Environment Standard Height Toilet,Tub/ Shower Home Equipment Shower Seat without Backrest, Grab Bars In Shower M2 OT-IP Current Condition Start: 10/02/23 15:08 Freq: Status: Active Protocol: Document 10/02/23 15:08 [facility] (Rec: 10/02/23 15:30 [facility] [id number]) Occupational Therapy Current Condition Current Condition Evaluation Date 10/02/23 Treatment Diagnosis h/O Falls, acute hypoxia Diagnosis Onset Date 10/02/23 M3 OT- IP Subjective and Pain Start: 10/02/23 15:08 Freq: Status: Active Protocol: Document 10/02/23 15:08 [facility] (Rec: 10/02/23 15:30 [facility] [id number]) OT- Subjective Occupational Therapy Visit Type Type Initial Evaluation Visit Start Time 14:15 Visit Stop Time 14:55 Occupational Therapy Visit Comments Patient Comments Pt in the bathroom on his own when OT came in to see the pt. Patient/Caregiver Goals To go home. OT Pain Assessment Pain When Pain Assessed During Mobility Pain Present Pain Present Pain Reported Location Bilateral Knee Description Burning M4 OT- IP ADL's Start: 10/02/23 15:08 Freq: Status: Active Protocol: Document 10/02/23 15:08 [facility] (Rec: 10/02/23 15:30 [facility] [id number]) OT [id number] Comments OT Self-Feeding Comments NO issues anticipated. OT ADL-Grooming Comments OT Grooming Comments No issues anticipated, not performed. OT ADL-Oral Care Comments Oral Care Comments Not performed. OT ADL-Dressing General Eval Lower Body Dressing Ability Standby Assistance Comments OT Dressing Comments Pt able to lisandro/doff his socks while seated on the recliner. OT ADL-Toileting General Evaluation Toileting Ability Standby Assistance Comments OT Toileting Comments SBA for toileting needs. Mainly vc to not thrown the wet wipes into the toilet as pt would forget. OT ADL-Bathing Comments OT Bathing Comments Pt will benefit from using the shower stool at home for showering needs. M5 OT- IP IADL's Start: 10/02/23 15:08 Freq: Status: Active Protocol: Document 10/02/23 15:08 [facility] (Rec: 10/02/23 15:30 [facility] [id number]) OT-Instrumental Activities of Daily Living Deficits IADL Deficits Identified Deficits Home Safety Awareness Awareness of Need for Assistance at Home Decreased Awareness Home Safety Comments Pt has decreased safety awareness and especially as pt is a bit insistent on his care. Medication Management Medication Management Comments At this time pt will benefit from assist due to his decreased STM. Money Management Money Management Comments Pt will benefit from assist. Meal Preparation Meal Preparation Comments Pt will benefit from assist. Poultry Raiser Poultry Raiser Comments Pt will benefit from assist. Driving Driving Concerns Identified Regarding Safety M6 OT- IP Functional Cognition Start: 10/02/23 15:08 Freq: Status: Active Protocol: Document 10/02/23 15:08 [facility] (Rec: 10/02/23 15:30 [facility] [id number]) Cognitive Factors Limiting Selfcare Function Cognitive Ability Level of Alertness Alert Patient Orientation Name,Age,Birthday,Month,Date, Year,Place,Situation Attention Span Ability Capable of Focused Attention, Capable of Sustained Attention Ability to Follow Commands Able to Follow One Step Commands Memory Description Short Term Impaired,Working Impaired Safety Awareness Underestimates Need for Assistance Cognitive Tests SLUMS Pt scored 22/30 on the SLUMS which implies mild neurocognitive disorder. Pt surprised that he was having a lot of difficulty with his short term memory. Pt not able to recall any of the 5 objects after time passed, pt not able to state a 4 digit number backwards, pt able to answer 3/4 questions right after paragraph read. Cognitive Comments Cognitive Assessment Comments Pt having difficulty with [place] [employer] Part B and scored 188 seconds and having difficulty to sequence between numbers and letter. Pt score implies severe deficits for visual attention, speed of processing, mental flexibility, executive functioning, and task switching. Pt prior to the assessment was insistent that he could drive but now aware best not to drive. Pt admits that he has fallen but states is prideful and does not want to use a device. Pt states his has been asking him to use a device as well. Pt admits to not hydrating well and drinks 2 cups of coffee and one glass of water at night. In addition pt has fallen on his head recently in the parking lot and may also be affecting his cognition. OT- Vision and Hearing OT- Hearing Assessment OT- Hearing Assessment WFL OT- Vision Assessment Visual Acuity Glasses For Reading Visual Attentiveness WFL Occular Pursuits WFL Visual Bautista WFL Diplopia Absent M7 OT- IP Mobility and Balance Start: 10/02/23 15:08 Freq: Status: Active Protocol: Document 10/02/23 15:08 [facility] (Rec: 10/02/23 15:30 [facility] [id number]) OT-Transfer Assessment Sit to and From Stand Sit to and from Stand Standby Assistance Transfers Transfer Ability Standby Assistance,Contact Guard Assistance Technique Transfer Destination Bed,Chair,Toilet Transfer Technique Stand Step Pivot Devices Transfer Assistive Devices None,Front Wheeled Walker Comments Mobility Comments CGA without a device and tends to hold onto surfaces and SBA with the FWW. OT- Balance Assessment Sitting Balance and Reactions Static Sitting Balance Ability Normal Dynamic Sitting Balance Ability Good Standing Balance and Reactions Static Standing Balance Ability Good Dynamic Standing Balance Ability Fair M8 OT- IP Objective Assessments Start: 10/02/23 15:08 Freq: Status: Active Protocol: Document 10/02/23 15:08 [facility] (Rec: 10/02/23 15:30 [facility] [id number]) OT Gross Range of Motion Upper Extremity Range of Motion ROM Impairments Decreased at end ROM OT Strength Upper Extremity Strength Assessment Within Functional Limits OT- Coordination Assessment Upper Extremity Finger to Nose Test Bilateral UE Impaired Comments Coordination Comments Slightly off for both hands. Pt able to lisandro/doff his wrist watch with each hand appropriately. M9 OT- IP Assessment and Plan Start: 10/02/23 15:08 Freq: Status: Active Protocol: Document 10/02/23 15:08 [facility] (Rec: 10/02/23 15:30 [facility] [id number]) OT Summary Assessment and Plan Potential Rehabilitation Potential Good Analytic Complexity at Evaluation Moderate Summary OT Impairments Pain,Range of Motion,Strength, Balance,Functional Cognition, Functional Mobility,Dressing, Toileting,Bathing,Toilet Transfers,Shower Transfers Progress Towards Goals Slow Progress due to Pain,Slow Progress due to Medical Issues,Slow Progress due to Cognition Assessment Summary Pt MOD complexity and main barriers are per pt having more difficulty with his short term memory, decreased dynamic balance and will benefit from a FWW but pt is prideful and does not like to use it. Pt scored 22/30 on the SLUMS which implies mild neurocognitive disorder and scored 188seconds on the SLUMS which implies severe deficits for task switching,visual attention, speed of processing , executive functioning, and mental flexibility. Pt was surprised that he is not thinking that well. Pt to go home with his and may benefit from outpt therapy versus home health pending his progress. Goals Self-Feeding Goal Independent Grooming Goal Independent Dressing Goal Independent Toileting Goal Independent Bathing Goal Independent Toilet Transfer Goal Independent Shower Transfer Goal Independent Days to Meet Goals 7 Frequency of Treatment Frequency Of Treatment Once a Day Treatment Plan OT Treatment Plan ADL Training,Functional Cognition Training,Functional Mobility,Patient/Family Education,Discharge Planning Discharge Recommendations OT Discharge Recommendations Home with 15/12 Assist Available,Home Health, Outpatient PT Home Equipment Needs FWW Transportation Needs at Discharge Private Vehicle
[2023-10-02] MEDS: MAGNESIUM SULFATE 4 GM/100 ML PIGGYBACK IV (15:24)
[2023-10-02] MEDS: PIPERACILLIN/TAZO 3.375 GM in SODIUM CHLORIDE 0.9% 100 ML IV (16:03)
--- NOTE | 2023-10-02 16:17 | P.HP_ITS ---
History of Present Illness History of Present Illness Chief complaint: GLF, no LOC Narrative: 68 y/o with PMH of chronic LBP, degenerative disease of LS, recurrent injury falls, most of which happened in the last few days, presented to ED after another 5 GLFs on a day of admission. In the ED with leukocytosis, hypoxemic, suspected for respiratory infection given chronic cough, given empiric Rocephin. Subsequent CTA negative for PE or infiltrates and CT abdomen with suspected cholecystitis. [facility] Medical History (Updated 10/02/23 @ 07:36 by Moreno Martinez MD) Diabetes HLD (hyperlipidemia) HTN (hypertension) COPD (chronic obstructive pulmonary disease) Fusion of lumbar spine Social History household members: spouse Smoking Status: Never smoker alcohol intake: never Meds Home Medications and Allergies Home Medications Medication Instructions Recorded Confirmed Type cyclobenzaprine 5 mg tablet 10 mg (2 x 5 mg) PO BID PRN muscle 06/08/19 09/30/21 Rx spasm #30 tabs hydrocodone 5 mg-acetaminophen 325 1 tab PO BID PRN pain #7 tabs 06/08/19 09/30/21 Rx mg tablet ([place]) atorvastatin PO 09/30/21 09/30/21 History benzonatate 100 mg capsule 100 mg PO BID PRN cough #20 caps 09/30/21 09/30/21 Rx dulaglutide [Trulicity] SUBCUT 09/30/21 09/30/21 History hydrochlorothiazide PO 09/30/21 09/30/21 History insulin glargine [Lantus Solostar SUBCUT 09/30/21 09/30/21 History U-100 Insulin] lisinopril PO 09/30/21 09/30/21 History metformin 500 mg tablet 500 mg PO DAILY 09/30/21 09/30/21 History hydroxyzine pamoate 50 mg capsule 50 mg PO TID PRN nausea and 01/29/22 Rx (Vistaril) vomiting #30 caps cyclobenzaprine 10 mg tablet 10 mg PO TID PRN muscle spasm #30 09/30/23 Rx tabs Allergies Allergy/AdvReac Type Severity Reaction Status Date / Time morphine [MORPHINE] Allergy Unknown Verified 05/09/22 17:57 Review of Systems Constitutional Comments: generalized weakness Eyes Comments: w/o vision changes Cardiovascular Comments: w/o chest pain Respiratory Comments: short of breath, cough Gastrointestinal Comments: Decreased appetite. Without N/V/abdominal pain Genitourinary Comments: w/o dysuria Musculoskeletal Comments: low back pain Neurologic Comments: episodic loss of balance and falls Exam Vital Signs (past 8 hours): Fraction of Inspired Oxygen 21 SaO2/FiO2 Ratio 433 Oxygen Delivery Method Room Air,Nasal Cannula Oxygen Flow Rate 0 Const Other: sitting in bed in no distress HENMT Other: normocephalic Resp Other: w/o wheezing Cardio Other: RRR GI Other: w/o distension or tenderness Skin Other: w/o rashes Neuro Other: w/o deficits Psych Other: lucid, appropriate mood Objective Labs 10/02/23 06:24 10/02/23 06:24 Assessment & Plan Assessment & Plan narrative: 1. Recurrent Falls - his mobility and LS/TS ROM is limited and he is following with Sx for operative repair - occasionally loosing balance after Flexeril, or few days ago Tramadol - PT eval 2. Acute Hypoxemia / Cough - diagnosed with COPD less then a year ago, on [facility] only, w/o wheezing or signs of COPD exacerbation - CTA negative for PE or infiltrates - 5 falls in 8 hours - with leukocytosis, possible bronchitis - empiric abx, bronchodilators, O2 prn 3. CT abdomen with suspected cholecystitis - w/o GI complaints - RUQ US pending - empiric Rocephin given in ED for respiratory infection switched to Zosyn - NPO, Sx eval. as needed 4. IDDM type 2 - holding trulicity, lantus, metformin - home meds not updated yet - SS only, NPO for now - until cholecystitis r/o 5. HTN - holding home Lisinopril and HCTZ - meds to be updated 6. HLD - statin at home, on hold DVT prophylaxis - Lovenox
--- NOTE | 2023-10-02 17:10 | PM.DS.1 ---
History of Present Illness History of Present Illness Chief complaint: GLF, no LOC Narrative: 68 y/o with PMH of chronic LBP, degenerative disease of LS, recurrent injury falls, most of which happened in the last few days, presented to ED after another 5 GLFs on a day of admission. In the ED with leukocytosis, hypoxemic, suspected for respiratory infection given chronic cough, given empiric Rocephin. Subsequent CTA negative for PE or infiltrates and CT abdomen with suspected cholecystitis. Discharge Providers Provider Date of admission: 10/02/23 05:02 Discharge Date: 10/02/23 Primary care physician: Shaila Montes MD Consults: 10/02/23 05:13 Consult to Physical Therapy Evaluate & Treat Comment: recurrent falls Physician Instructions: Evaluate and Treat 10/02/23 09:45 Consult to General Surgery Routine Comment: Consulting Provider: Faviola Springer Reason for consultation: possible acute shalonda 10/02/23 13:02 Consult to Occupational Therapy Evaluate & Treat Comment: Physician Instructions: Evaluate and treat Discharge provider: Kenan Lozano DO Summary Hospital Course Discharge Diagnosis: 1. Recurrent Falls, likely concussion - his mobility and LS/TS ROM is limited and he is following with Sx for operative repair - occasionally loosing balance after Flexeril, or few days ago Tramadol - PT eval cleared for home with walker - patient normally with clear mentation, but since hitting head notes has been off. SLUMS . 2. Acute Hypoxemia / Cough - diagnosed with COPD less then a year ago, on [facility] only, w/o wheezing or signs of COPD exacerbation - CTA negative for PE or infiltrates - 5 falls in 8 hours - with leukocytosis, possible bronchitis - bronchodilators, O2 prn 3. CT abdomen with suspected cholecystitis - w/o GI complaints - RUQ US without definite cholecystitis - empiric zosyn given - gen surg consulted and recommended outpatient HIDA 4. IDDM type 2 - holding trulicity, lantus, metformin - home meds not updated yet - SS only, NPO for now - until cholecystitis r/o 5. HTN - holding home Lisinopril and HCTZ - meds to be updated 6. HLD - statin at home, on hold Hospital Course: Admitted for recurrent falls and possible acute shalonda. Gen surg consulted and did not think was true cholecystitis and recommended outpatient HIDA. PT assessed and walker was recommended at home. OT did SLUMS which was . noted he was acting off since his first fall where he struck his head. Likely due to post-concussive state. Discharged home. Exam Vital Signs (past 8 hours): Fraction of Inspired Oxygen 21 SaO2/FiO2 Ratio 433 Oxygen Delivery Method Room Air,Nasal Cannula Oxygen Flow Rate 0 Const Other: sitting in bed in no distress HENMT Other: normocephalic Resp Other: w/o wheezing Cardio Other: RRR GI Other: w/o distension or tenderness Skin Other: w/o rashes Neuro Other: w/o deficits Psych Other: lucid, appropriate mood Objective Labs 10/02/23 06:24 10/02/23 06:24 Labs: Laboratory Results - last 24 hr 10/01/23 10/01/23 10/02/23 22:16 22:55 00:07 WBC 14.0 H RBC 4.27 L Hgb 12.8 L Hct 38.3 L MCV 89.8 MCH 30.0 MCHC 33.4 RDW 13.8 Plt Count 207 Neut % (Auto) 61.4 Lymph % (Auto) 27.5 [place] % (Auto) 9.7 Eos % (Auto) 1.1 L Baso % (Auto) 0.3 Neut # (Auto) 8600 H Lymph # (Auto) 3800 [place] # (Auto) 1400 H Eos # (Auto) 200 Baso # (Auto) 0 PT 12.8 H INR 1.1 APTT 32 Sodium 138 Potassium 3.6 Chloride 103 Carbon Dioxide 23 BUN 23 H Creatinine 0.97 Estimated GFR > 60 BUN/Creatinine Ratio 23.7 H Glucose 153 H Hemoglobin A1c Lactate 5.7 H* 1.7 Calcium 9.1 Magnesium Total Bilirubin 2.2 H Conjugated Bilirubin Unconjugated Bilirubin AST 42 ALT 31 Alkaline Phosphatase 56 Ammonia < 9 L Total Protein 7.8 Albumin 4.6 Globulin 3.2 Albumin/Globulin Ratio 1.4 Lipase 45 Procalcitonin 0.23 Ur Bilirubin Confirm Urine RBC Urine WBC Ur Squamous Epith Cells Amorphous Sediment Urine Bacteria Hyaline Casts Granular Casts Urine Mucus Ur Culture Indicated? Vol Urine Centrifuged 10/02/23 10/02/23 01:25 06:24 WBC 9.4 RBC 3.90 L Hgb 11.8 L Hct 34.9 L MCV 89.5 MCH 30.3 MCHC 33.9 RDW 13.5 Plt Count 168 Neut % (Auto) 58.3 Lymph % (Auto) 29.5 [place] % (Auto) 10.1 Eos % (Auto) 1.5 L Baso % (Auto) 0.6 Neut # (Auto) 5500 Lymph # (Auto) 2800 [place] # (Auto) 900 Eos # (Auto) 100 Baso # (Auto) 100 PT INR APTT Sodium 138 Potassium 3.6 Chloride 104 Carbon Dioxide 28 BUN 17 Creatinine 0.85 Estimated GFR > 60 BUN/Creatinine Ratio 20.0 Glucose 119 H Hemoglobin A1c 7.0 H Lactate Calcium 8.3 L Magnesium 1.5 L Total Bilirubin 1.9 H Conjugated Bilirubin 0.0 Unconjugated Bilirubin 1.8 H AST 35 ALT 26 Alkaline Phosphatase 48 Ammonia Total Protein 6.8 Albumin 3.8 Globulin 3.0 Albumin/Globulin Ratio 1.3 Lipase Procalcitonin Ur Bilirubin Confirm Negative Urine RBC 0-1/hpf Urine WBC 0-1/hpf Ur Squamous Epith Cells 1-5 /hpf Amorphous Sediment 2+ Urine Bacteria Occasional (0-1) Hyaline Casts 0-1/lpf Granular Casts 0-1/lpf Urine Mucus 2+ H Ur Culture Indicated? Cult not indicated Vol Urine Centrifuged 10ml (spun) [facility] Medical History (Updated 10/02/23 @ 07:36 by Moreno Martinez MD) Diabetes HLD (hyperlipidemia) HTN (hypertension) COPD (chronic obstructive pulmonary disease) Fusion of lumbar spine Social History household members: spouse Smoking Status: Never smoker alcohol intake: never Discharge Plan Discharge Plan Patient Disposition: Home Health Service Provider Discharge Comment: You may have had a concussion from your fall, which led to another fall and some memory issues. Your gallbladder was found to be distended, but we couldn't determine if there was actual infection there or not. Please follow-up with your PCP to potentially get a HIDA scan. Discharge orders & Medications Prescriptions: Continued lisinopril PO metformin 500 mg tablet 500 mg PO DAILY atorvastatin PO hydrochlorothiazide PO dulaglutide [Trulicity] SUBCUT insulin glargine [Lantus Solostar U-100 Insulin] SUBCUT benzonatate 100 mg capsule 100 mg PO BID PRN (Reason: cough) Qty: 20 0RF cyclobenzaprine 10 mg tablet 10 mg PO TID PRN (Reason: muscle spasm) Qty: 30 0RF cyclobenzaprine 5 mg tablet 10 mg PO BID PRN (Reason: muscle spasm) Qty: 30 0RF hydrocodone-acetaminophen [[place]] 5-325 mg tablet 1 tab PO BID PRN (Reason: pain) Qty: 7 0RF hydroxyzine pamoate [Vistaril] 50 mg capsule 50 mg PO TID PRN (Reason: nausea and vomiting) Qty: 30 0RF Follow up/Referrals: Shaila Montes MD [Primary Care Provider] - 1 Week Visit Report/Discharge Packet Stand Alone Forms: Patient Portal/API, Stroke Signs & Symptoms Discharge Data Primary Care Provider: Shaila Montes
--- NOTE | 2023-10-02 18:42 | PC.NURSE ---
patients IVs removed. Went over discharge instructions with pt and . no further questions. Packed up pt belongings. Wheeled pt out to private vehicle in wheelchair.
== END 2023-10-02 18:05 | disposition home health service (06) | DRG 90 ==
LOC: ED 10-02 02:50 → AC 10-02 05:03
PROVIDERS: Student in an Organized Health Care Education/Training Program; Admitting Provider Internal Medicine; Emergency Provider Emergency Medicine; PCP Internal Medicine; Referring Provider Emergency Medicine; Visit Provider Internal Medicine
DX: S06.0XAA Concussion with loss of consciousness status unknown, initial encounter (principal); R29.6 Repeated falls; E11.9 Type 2 diabetes mellitus without complications; I10 Essential (primary) hypertension; E78.5 Hyperlipidemia, unspecified; K81.9 Cholecystitis, unspecified; R09.02 Hypoxemia; R05.9 Cough, unspecified; J44.9 Chronic obstructive pulmonary disease, unspecified; G89.29 Other chronic pain; M54.9 Dorsalgia, unspecified; S00.83XA Contusion of other part of head, initial encounter; W18.30XA Fall on same level, unspecified, initial encounter; Z79.85 Long-term (current) use of injectable non-insulin antidiabetic drugs; Z79.4 Long term (current) use of insulin; Z79.84 Long term (current) use of oral hypoglycemic drugs
CPT/HCPCS: 36415; 70450; 71045; 71275; 72125; 72128; 72131; 74177; 76705; 80048; 80053; 80076; 81003; 81015; 82140; 82962; 83036; 83605; 83690; 83735; 84145; 85025; 85610; 85730; 87040; 87086; 93005; 93010; 96365; 97162; 97166; 97530; 99285; 99291; J0696; J1650; J2543; J3475; J7613; Q9967